=== PATIENT | male | born 1995 | race Caucasian/White ===

== ENCOUNTER 2019-09-20 17:42 | Emergency (ER) | payer OTHER, SELFPAY ==
--- NOTE | ~2019-09-20 | XR_ITS ---
EXAMINATION: XR chest 2V DATE: 09/20/2019 18:01 INDICATION: Left-sided chest pain extending into the arm. TECHNIQUE: PA and lateral views of the chest were obtained. COMPARISON: Chest radiograph dated 04/20/2016 FINDINGS: The lungs remain clear with no focal airspace opacities, pulmonary edema, pleural effusion or pneumot horax. The cardiomediastinal silhouette is normal. Calcified right hilar lymph nodes consistent with old granulomatous disease. Cholecystectomy clips in the right upper quadrant. Mild thoracic spondylos is. IMPRESSION: 1. No acute cardiopulmonary disease. Reviewed, dictated and finalized at location A. ERCIAL CARPENTER
--- NOTE | 2019-09-20 17:43 | ECG_ITS ---
Measurements Intervals [place] Rate: 79 P: 40 [place]: 155 QRS: 48 QRSD: 100 T: 51 QT: 341 QTc: 392 Interpretive Statements SINUS RHYTHM WITH SINUS ARRHYTHMIA BASELINE ARTIFACT- I, II, AVR, AVL, AVF, V1-V2 NORMAL ECG Electronically Signed On 09-20-2019 19:02:33 RN TRAVEL by Jorge Chance D.O.
[2019-09-20 17:45] VITALS: BP 126/94; PULSE 90; RESP 16; TEMP 36.6; O2SAT 100
[2019-09-20 17:49] VITALS: PULSE 82
[2019-09-20] MEDS: ASPIRIN 81 MG CHEWABLE TABLET 324 MG PO (17:56)
[2019-09-20 18:02] LABS: Basophils Percent Auto 0.4 % (0.2-1.2); Eosinophils Absolute Auto 0.2 K/mm3 (0-0.3); Eosinophils Percent Auto 1.9 % (0-4.4); Hemoglobin 13.2 g/dL (14.0-18.0); Immature Granulocyte Absolute 0.02 K/mm3 (0.00-0.031); Immature Granulocyte Percent A 0.2 % (0-0.5); Lymphocytes Absolute Auto 2.13 K/mm3 (0.9-3.2); Lymphocytes Percent Auto 25.9 % (18.3-44.2); Mean Corpuscular HGB Conc 32.2 g/dl (32-36); Mean Corpuscular Hemoglobin 29.2 pg (26-34); Mean Corpuscular Volume 90.7 fl (80-100); Mean Platelet Volume 10.2 fl (7.4-10.4); Monocytes Absolute Auto 0.5 K/mm3 (0.1-0.6); Monocytes Percent Auto 6.2 % (2.6-8.5); Neutrophils Absolute Auto 5.4 K/mm3 (1.3-6.7); Neutrophils Percent Auto 65.4 % (45.5-73.1); Platelet Count Result 261 k/mm3 (150-375); Red Blood Count 4.52 M/mm3 (4.6-6.20); White Blood Count 8.2 K/mm3 (4.5-10.0)
[2019-09-20 18:09] VITALS: BP 135/69; PULSE 112; RESP 18; O2SAT 100
--- NOTE | 2019-09-20 18:09 | ED.CHESTPAIN ---
HPI - Chest Pain General Chief Complaint: Chest Pain Stated Complaint: CAMI BEEN HAVING CHEST PAINS Time Seen by Provider: 09/20/19 18:01 Source: patient and RN notes reviewed Mode of arrival: ambulatory Limitations: no limitations History of Present Illness HPI narrative: A 24 y/o male, with a hx of Hepatitis C, presents to the ED with constant, stabbing, lt CP for the past 3 days. He states that he has been having intermittent lt CP for the past 4-5 months but that over the past 3 days it has become constant, so he decided to come to the ED to be evaluated. He reports that over the past week he has developed nasal congestion and a cough. He notes that standing alleviates his pain and that sitting or leaving forward aggravates his pain. He notes his pain is currently resolved. He also notes that he does smoke cigarettes, vapes, and E-cigarettes. He denies any N/V/D, sweats, SOB, leg swelling, leg pain, lightheadedness, or dizziness. MD complaint: chest pain Onset (ago): day(s) (3) Timing of current episode: constant Prior episodes: Yes Pain location: left chest Quality: other (stabbing) Relieving factors: other (standing) Exacerbating factors: other (sitting down or leaning forward) Associated symptoms: cough and other (nasal congestion) Risk Factors Coronary artery disease risk factors: smoking history Related Data Home Medications Medication Instructions Recorded Confirmed buprenorphine-naloxone film 09/20/19 Allergies Allergy/AdvReac Type Severity Reaction Status Date / Time cephalexin Allergy Unknown Rash Verified 09/20/19 17:50 Review of Systems Review of Systems: Narrative: CONSTITUTIONAL: Denies sweats. ENT: Reports nasal congestion. CARDIOVASCULAR: Denies edema or leg pain. Reports lt CP. RESPIRATORY: Denies dyspnea. Reports cough. GASTROINTESTINAL: Denies nausea, vomiting, or diarrhea. NEUROLOGIC: Denies dizziness or lightheadedness. All systems reviewed & are unremarkable except as noted in HPI and below PMFSH Past Medical History Medical History (Updated 09/20/19 @ 18:46 by Kassandra Gomes MD) Anxiety Depression Hepatitis C Right wrist fracture Surgical History Surgical History (Updated 09/20/19 @ 18:33 by Сергей Becerril) No history of previous surgery Social History Social History (Updated 09/20/19 @ 18:33 by Сергей Orr) Smoking packs per day: 0.33 Smoking cigarettes per day: 6.6 Smoking status: Current every day smoker Tobacco type: cigarettes and e-cigarettes Gender identity (if verbalized by the patient): Male Comments PCP: Dr. Zuniga. Exam Narrative: Exam Narrative: GENERAL: Well-appearing, well-nourished, and in no acute distress. HEAD: Normocephalic, atraumatic. EYES: PERRLA and EOMI. ENT: Nares clear, no rhinorrhea or epistaxis. Mucous membranes moist. NECK: Supple. CHEST: Clear to auscultation. No respiratory distress. No chest wall tenderness. HEART: Regular rate and rhythm. No murmur heard. Normal peripheral pulses. ABDOMEN: Soft, nontender, nondistended, normal active bowel sounds. EXTREMITIES: Normal range of motion. No edema. SKIN: Warm, dry, no rash. NEURO: No focal deficits. Alert and oriented X3. Course Vital Signs Vital signs: Vital Signs Temperature 36.6 C 09/20/19 17:45 Pulse Rate 90 09/20/19 17:45 Respiratory Rate 16 09/20/19 17:45 Blood Pressure 126/94 H 09/20/19 17:45 Pulse Oximetry 100 09/20/19 17:45 Temperature 36.6 C 09/20/19 17:45 Pulse Rate 112 H 09/20/19 18:09 Respiratory Rate 18 09/20/19 18:09 Blood Pressure 135/69 09/20/19 18:09 Pulse Oximetry 100 09/20/19 18:09 MDM - Chest Pain MDM Narrative Medical decision making narrative: Patient presenting for evaluation of chest pain which is been chronic over the past 3 to 4 months. Patient reports constant chest pain, there is a positional component to this. Patient's EKG and labs are without significant high risk changes. I do not see evidence concernin
[2019-09-20 18:11] LABS: Prothrombin Time 12.4 Seconds (11.1-14.7)
[2019-09-20 18:12] LABS: Partial Thromboplastin Time 27.8 SECONDS (22.3-36.8)
[2019-09-20 18:13] LABS: Blood Urea Nitrogen 21 mg/dL (9-20); Calcium 9.3 mg/dL (8.4-10.2); Carbon Dioxide 27 mmol/L (22-30); Chloride 99 mmol/L (98-107); Estimated CRCL calculation 130 ml/min; Estimated Glomerular Filt Rate > 60; Glucose 95 mg/dL (75-110); Potassium 3.7 mmol/L (3.4-5.0); Sodium 140 mmol/L (137-145)
[2019-09-20 18:25] LABS: Troponin I < 0.012 ng/mL (0.000-0.034)
[2019-09-20 19:16] VITALS: BP 115/67; PULSE 60; RESP 15; O2SAT 99
== END 2019-09-20 19:17 | disposition home or self-care (01) ==
PROVIDERS: Emergency Medicine; Emergency Provider Emergency Medicine; PCP Physician Assistant
DX: R07.89 Other chest pain (principal); Z86.19 Personal history of other infectious and parasitic diseases; F17.210 Nicotine dependence, cigarettes, uncomplicated; F17.290 Nicotine dependence, other tobacco product, uncomplicated; F41.9 Anxiety disorder, unspecified; F32.9 Major depressive disorder, single episode, unspecified
CPT/HCPCS: 36415; 71046; 80048; 84484; 85025; 85610; 85730; 93005; 99284; A9270

== ENCOUNTER 2021-04-09 10:40 | Emergency (ER) | payer OTHER, SELFPAY ==
--- NOTE | ~2021-04-09 | US_ITS ---
EXAMINATION: US scrotum doppler DATE: 04/09/2021 12:05 INDICATION: Left testicular pain TECHNIQUE: Testicular sonogram utilizing grayscale and Doppler COMPARISON: None. FINDINGS: The right testis measures 4.0 x 2.1 x 3.3 cm. The left testis measures 3.9 x 2.3 x 3.1 cm. Symmetric normal grayscale appearance to both testes. There is normal vascular flow to both testes. The right e pididymis is normal with normal vascular flow. The left epididymis is normal with normal vascular juliann w. There is no hydrocele. Left varicocele with vessels dilates to 2.7 mm which augment with Valsalva. IMPRESSION: 1. Left varicocele. Otherwise normal scrotal ultrasound. Reviewed, dictated and finalized at location A.
[2021-04-09 10:42] VITALS: BP 143/47; PULSE 62; RESP 16; TEMP 36.8; O2SAT 100
--- NOTE | 2021-04-09 11:17 | ED.GENADULT ---
HPI - General Adult General Chief complaint: Urogenital-Male Stated complaint: testicle pain Time Seen by Provider: 04/09/21 11:01 Source: patient and RN notes reviewed Mode of arrival: ambulatory Limitations: no limitations History of Present Illness HPI narrative: This is a 25 year old male who present for evaluation of left testicular pain. He reports having intermittent pain for 2 weeks. He states his pain is getting worse. He also reports left testicular swelling and tenderness. He denies fever, chills, discharge or dysuria. He does complain of left lower abdominal pain and nausea. He has chronic back pain. Related Data Home Medications Medication Instructions Recorded Confirmed buprenorphine-naloxone 1 film SUBLINGUAL BID 09/20/19 Allergies Allergy/AdvReac Type Severity Reaction Status Date / Time cephalexin Allergy Unknown Rash Verified 04/09/21 11:23 Review of Systems Review of Systems: All systems reviewed & are unremarkable except as noted in HPI and below PMFSH Past Medical History Medical History Anxiety Depression Hepatitis C Right wrist fracture Surgical History Surgical History (Updated 09/20/19 @ 18:33 by Сергей Becerril) No history of previous surgery Social History Social History (Updated 09/20/19 @ 18:33 by Сергей Becerril) Smoking packs per day: 0.33 Smoking cigarettes per day: 6.6 Smoking status: Current every day smoker Tobacco type: cigarettes and e-cigarettes/vaping Gender identity (if verbalized by the patient): Male Exam Const: General: no acute distress and alert Orientation/consciousness: patient oriented x3 Eyes: EOM: EOMs intact bilaterally Resp: Effort & Inspection: normal respiratory effort and no retractions Auscultation: clear to auscultation bilaterally Cardio: Rate: regular rate Rhythm: regular rhythm Heart sounds: no murmurs GI: GI Palp: Yes Soft to palpation, No Tenderness to palpation present (GI) and No Guarding due to palpation present (GI) Auscultation: normal bowel sounds : General: Yes no CVA tenderness Male General Exam: Yes normal external exam Penis: Yes circumcised Scrotum: scrotum normal Skin: General skin exam: normal color Rashes: no rashes Neuro: General: patient oriented x3, moves all extremities and CN's II-XI intact bilaterally Course Reevaluation(s) Reevaluation #1: Patient has normal examination and labs. I discussed with patient. Date: 04/09/21 Time: 13:36 Vital Signs Vital signs: Vital Signs Temperature 98.3 F 04/09/21 10:42 Pulse Rate 62 04/09/21 10:42 Respiratory Rate 16 04/09/21 10:42 Blood Pressure 143/47 H 04/09/21 10:42 Pulse Oximetry 100 04/09/21 10:42 Temperature 98.3 F 04/09/21 10:42 Pulse Rate 70 04/09/21 13:41 Respiratory Rate 20 04/09/21 13:41 Blood Pressure 138/80 04/09/21 13:41 Pulse Oximetry 100 04/09/21 13:41 Medical Decision Making Vital Signs Vital Signs: Vital Signs Temperature 98.3 F 04/09/21 10:42 Pulse Rate 62 04/09/21 10:42 Respiratory Rate 16 04/09/21 10:42 Blood Pressure 143/47 H 04/09/21 10:42 Pulse Oximetry 100 04/09/21 10:42 Temperature 98.3 F 04/09/21 10:42 Pulse Rate 70 04/09/21 13:41 Respiratory Rate 20 04/09/21 13:41 Blood Pressure 138/80 04/09/21 13:41 Pulse Oximetry 100 04/09/21 13:41 Lab Data Result diagrams: 04/09/21 11:26 04/09/21 11:26 Labs: Lab Results 04/09/21 04/09/21 04/09/21 Range/Units 11:26 11:26 11:26 WBC 6.1 (4.5-10.0) K/mm3 RBC 4.48 L (4.6-6.20) M/mm3 Hgb 13.3 L (14.0-18.0) g/dL Hct 41.6 L (42.0-52.0) % MCV 92.9 (80-100) fl MCH 29.7 (26-34) pg MCHC 32.0 (32-36) g/dl RDW 12.4 (11.5-14.5) % Plt Count 179 (150-375) k/mm3 MPV 10.3 (7.4-10.4) fl Immature Gran % (Auto) 0.3 (0-0.5) % Neut % (Auto) 59.9 (45.5-73.1) % Lymp
[2021-04-09 11:50] LABS: Basophils Percent Auto 0.5 % (0.2-1.2); Eosinophils Absolute Auto 0.2 K/mm3 (0-0.3); Eosinophils Percent Auto 3.1 % (0-4.4); Hematocrit 41.6 % (42.0-52.0); Hemoglobin 13.3 g/dL (14.0-18.0); Immature Granulocyte Absolute 0.02 K/mm3 (0.00-0.031); Immature Granulocyte Percent A 0.3 % (0-0.5); Lymphocytes Absolute Auto 1.57 K/mm3 (0.9-3.2); Lymphocytes Percent Auto 25.7 % (18.3-44.2); Mean Corpuscular Hemoglobin 29.7 pg (26-34); Mean Corpuscular Volume 92.9 fl (80-100); Mean Platelet Volume 10.3 fl (7.4-10.4); Monocytes Absolute Auto 0.6 K/mm3 (0.1-0.6); Monocytes Percent Auto 10.5 % (2.6-8.5); Neutrophils Absolute Auto 3.7 K/mm3 (1.3-6.7); Neutrophils Percent Auto 59.9 % (45.5-73.1); Platelet Count Result 179 k/mm3 (150-375); Red Blood Count 4.48 M/mm3 (4.6-6.20); Red Cell Distribution Width 12.4 % (11.5-14.5); White Blood Count 6.1 K/mm3 (4.5-10.0)
[2021-04-09 12:02] LABS: Alanine Aminotransferase 27 U/L (4-50); Albumin Level 4.2 g/dL (3.5-5.1); Alkaline Phosphatase 46 U/L (38-126); Anion Gap 5 mmol/L (8-16); Aspartate Amino Transferase 24 U/L (17-59); Bilirubin,Total 0.5 mg/dL (0.2-1.3); Blood Urea Nitrogen 18 mg/dL (9-20); Calcium 9.3 mg/dL (8.4-10.2); Carbon Dioxide 28 mmol/L (22-30); Chloride 108 mmol/L (98-107); Estimated CRCL calculation 129 ml/min; Estimated Glomerular Filt Rate > 60; Glucose 62 mg/dL (65-110); Potassium 3.7 mmol/L (3.4-5.0); Sodium 141 mmol/L (137-145)
[2021-04-09 12:12] LABS: Add Urine Microscopic? YES; Appearance Urine Cloudy (Clear); Bacteria Urine Trace /hpf; Bilirubin Urine Negative (Negative); Blood Urine Negative (Negative); Budding Yeast Urine Present /hpf; Color Urine Yellow (Yellow); Glucose Urine UA Negative (Negative); Ketones Urine Negative (Negative); Leukocyte Esterase Ur Negative LEU/UL (Negative); Nitrate Urine Negative (Negative); Protein Urine Negative (Negative); RBC Urine 0-2 /hpf (0-2); Specific Grav Ur 1.013 (1.001-1.035); Squamous Epithelial Cell Urine Rare /hpf (Few); Urobilinogen Urine Negative mg/dL (<2.0); WBC Urine 0-3 /hpf
[2021-04-09] MEDS: KETOROLAC (*BKC) 60 MG/2 ML VIAL IM (12:44)
[2021-04-09 13:41] VITALS: BP 138/80; PULSE 70; RESP 20; O2SAT 100
== END 2021-04-09 13:42 | disposition home or self-care (01) ==
PROVIDERS: Emergency Provider General Practice; PCP Physician Assistant
DX: I86.1 Scrotal varices (principal); Z86.19 Personal history of other infectious and parasitic diseases; F17.290 Nicotine dependence, other tobacco product, uncomplicated
CPT/HCPCS: 36415; 76870; 80053; 81001; 85025; 93976; 96372; 99284; J1885

== ENCOUNTER 2021-04-13 13:17 | Emergency (ER) | payer OTHER, SELFPAY ==
--- NOTE | ~2021-04-13 | CT_ITS ---
EXAMINATION: 1. CT abdomen pelvis w con 2. CT femur LT w con DATE: 04/13/2021 17:00 INDICATION: Generalized abdominal pain. Left groin abscess. TECHNIQUE: Computed tomography (CT) of the abdomen and pelvis and left femur was performed with 100 m L Omnipaque 350 intravenous contrast. Automated exposure control and iterative reconstruction Launchupse were employed. The dose-length product was 1114.14 (accession [id number]), .00 (accession [id number]) mGy-cm. COMPARISON: CT abdomen and pelvis 12/21/2018 FINDINGS: CT ABDOMEN AND PELVIS: The visualized portions of the lung bases demonstrate minimal atelectasis. No pleural effusion. The h eart size is normal. No pericardial effusion. The liver, gallbladder, spleen, pancreas, adrenal gland s, and right kidney are normal. There is a 10 mm cyst in left kidney. There are no dilated loops of b owel. The appendix is normal. There are no pathologically enlarged lymph nodes. There is no free intr aperitoneal fluid. There is mild thoracolumbar spondylosis. There is chronic anterior wedging of T11. CT LEFT FEMUR: There is subcutaneous fat stranding in the left inguinal region. No soft tissue gas. There are no pat hologically enlarged lymph nodes. There is a 5 mm subcutaneous radiopaque foreign body in posterolate ral thigh. No knee joint effusion. There is mild left hip osteoarthritis. IMPRESSION: 1. Subcutaneous fat stranding in left inguinal region, consistent with inflammation. No abscess. 2. 5 mm subcutaneous radiopaque foreign body in posterolateral left thigh. Reviewed, dictated and finalized at location A. IMPRESSION: 1. Subcutaneous fat stranding in left inguinal region, consistent with inflamma tion. No abscess. 2. 5 mm subcutaneous radiopaque foreign body in posterolateral left thigh.
[2021-04-13 13:52] VITALS: BP 124/63; PULSE 86; RESP 16; TEMP 37.6; O2SAT 100
[2021-04-13 14:11] VITALS: BP 127/63; PULSE 86; RESP 18; TEMP 37.6; O2SAT 100
--- NOTE | 2021-04-13 14:17 | ED.GENADULT ---
HPI - General Adult General Chief complaint: Skin/Abscess/Foreign Body <EVELYN Fink Last Filed: 04/13/21 19:30> Stated complaint: Abscess groin <EVELYN Fink Last Filed: 04/13/21 19:30> Time Seen by Provider: 04/13/21 14:17 <EVELYN Fink Last Filed: 04/13/21 19:30> History of Present Illness HPI narrative: Patient is a 25-year-old male otherwise healthy who comes into the emergency room today with concerns about an abscess in his left groin. He notes that he noticed a painful red area in his left groin 3 days ago that is gotten progressively larger and more painful and earlier today it started draining some purulent fluid. Notes that he had some pain radiating up into his abdomen earlier today. He denies any fevers. He does note that he has been having some intermittent pain in his left groin and testicle region for the last 3 weeks, he actually came here over the weekend complaining of testicular pain and work-up was unremarkable including ultrasound, but the lump and skin changes were not present at that time. He has a history of opiate abuse, but has not used opioids for the last 3 or 4 years, is on Suboxone. Denies any illicit drug use at all. He is not diabetic and has no other medical conditions otherwise denies any fevers or any other symptoms or concerns. <EVELYN Fink Last Filed: 04/13/21 19:30> Related Data Home medications: Home Medications Medication Instructions Recorded Confirmed buprenorphine-naloxone 1 film SUBLINGUAL BID 09/20/19 <EVELYN Fink Last Filed: 04/13/21 19:30> Allergies/adverse reactions: Allergies Allergy/AdvReac Type Severity Reaction Status Date / Time cephalexin Allergy Unknown Rash Verified 04/13/21 14:15 <EVELYN Fink Last Filed: 04/13/21 19:30> Review of Systems Constitutional: Constitutional: Reports as per HPI, Denies fever(s), Denies night sweats and Denies weakness <EVELYN Fink Last Filed: 04/13/21 19:30> Cardiovascular: Cardiovascular: Denies chest pain, Denies edema, Denies leg edema, Denies dyspnea and Denies orthopnea <Negrito ReyesEVELYN Last Filed: 04/13/21 19:30> Respiratory: Respiratory: Denies cough and Denies dyspnea <Negrito ReyesEVELYN Last Filed: 04/13/21 19:30> Gastrointestinal: Gastrointestinal: Denies abdominal pain, Denies constipation, Denies diarrhea, Denies nausea and Denies vomiting <Negrito ReyesEVELYN Malcolm Last Filed: 04/13/21 19:30> Musculoskeletal: Musculoskeletal: Denies abnormal gait, Denies back pain, Denies numbness and Denies tingling <Negrito ÁlvarezdusEVELYN Last Filed: 04/13/21 19:30> Integumentary/Breasts: Comments: See HPI <Negrito Mcfarland EVELYN Reyes Last Filed: 04/13/21 19:30> Neurologic: Denies Abnormal speech present, Denies abnormal gait, Denies numbness, Denies tingling and Denies weakness <Negrito ÁlvarezEVELYN koch Last Filed: 04/13/21 19:30> Psychiatric: Psychiatric: Denies homicidal ideation and Denies suicidal ideation <Negrito ÁlvarezEVELYN koch Malcolm Last Filed: 04/13/21 19:30> [facility] Past Medical History Medical History: Medical History Anxiety Depression Hepatitis C Right wrist fracture <Negrito NortonDigna Reyes PA-C Malcolm Last Filed: 04/13/21 19:30> Surgical History Surgical History: Surgical History (Updated 09/20/19 @ 18:33 by Сергей Becerril) No history of previous surgery <Negrito Mcfarland EVELYN Reyes Last Filed: 04/13/21 19:30> Social History Social History: Social History (Updated 09/20/19 @ 18:33 by Сергей Becerril) Smoking packs per day: 0.33 Smoking cigarettes per day: 6.6 Smoking status: Current every day smoker Tobacco type: cigarettes and e-cigarettes/vaping Gender identity (if verbalized by the patient): Male <Negrito Reyes PA-C - Last Filed: 04/13/21 19:30> Exam N
[2021-04-13] MEDS: LACTATED RINGERS 1,000 ML 999 ML IV CONT (15:59)
[2021-04-13] MEDS: KETOROLAC 15 MG/ML VIAL (*BKC) IV PUSH (15:59)
[2021-04-13 16:14] LABS: Basophils Percent Auto 0.4 % (0.2-1.2); Eosinophils Absolute Auto 0.2 K/mm3 (0-0.3); Eosinophils Percent Auto 1.6 % (0-4.4); Hematocrit 42.8 % (42.0-52.0); Hemoglobin 13.7 g/dL (14.0-18.0); Immature Granulocyte Absolute 0.03 K/mm3 (0.00-0.031); Immature Granulocyte Percent A 0.3 % (0-0.5); Lymphocytes Absolute Auto 1.59 K/mm3 (0.9-3.2); Lymphocytes Percent Auto 14.6 % (18.3-44.2); Mean Corpuscular Hemoglobin 29.9 pg (26-34); Mean Corpuscular Volume 93.4 fl (80-100); Mean Platelet Volume 10.3 fl (7.4-10.4); Monocytes Absolute Auto 0.8 K/mm3 (0.1-0.6); Monocytes Percent Auto 7.3 % (2.6-8.5); Neutrophils Absolute Auto 8.3 K/mm3 (1.3-6.7); Neutrophils Percent Auto 75.8 % (45.5-73.1); Platelet Count Result 209 k/mm3 (150-375); Red Blood Count 4.58 M/mm3 (4.6-6.20); Red Cell Distribution Width 12.4 % (11.5-14.5); White Blood Count 10.9 K/mm3 (4.5-10.0)
[2021-04-13 16:29] LABS: Alanine Aminotransferase 29 U/L (4-50); Albumin Level 4.5 g/dL (3.5-5.1); Alkaline Phosphatase 54 U/L (38-126); Anion Gap 5 mmol/L (8-16); Aspartate Amino Transferase 31 U/L (17-59); Bilirubin,Total 0.6 mg/dL (0.2-1.3); Blood Urea Nitrogen 21 mg/dL (9-20); Calcium 9.3 mg/dL (8.4-10.2); Carbon Dioxide 30 mmol/L (22-30); Chloride 103 mmol/L (98-107); Estimated CRCL calculation 144 ml/min; Estimated Glomerular Filt Rate > 60; Glucose 92 mg/dL (65-110); Potassium 3.9 mmol/L (3.4-5.0); Sodium 138 mmol/L (137-145)
[2021-04-13 17:27] VITALS: BP 114/66; PULSE 60; RESP 18; O2SAT 100
[2021-04-13] MEDS: CLINDAMYCIN 600 MG/D5W 50 ML 600 MG/50 ML PIGGYBACK 100 MG IVPB (17:37)
[2021-04-13 19:50] VITALS: BP 132/76; PULSE 78; RESP 18; O2SAT 99
== END 2021-04-13 19:51 | disposition home or self-care (01) ==
PROVIDERS: Physician Assistant Medical; Emergency Provider Emergency Medicine; PCP Physician Assistant
DX: L03.90 Cellulitis, unspecified (principal); L02.818 Cutaneous abscess of other sites; F17.210 Nicotine dependence, cigarettes, uncomplicated; F41.9 Anxiety disorder, unspecified; F32.9 Major depressive disorder, single episode, unspecified
CPT/HCPCS: 10060; 36415; 73701; 74177; 80053; 85025; 96361; 96365; 96375; 99284; J1885; J7120; Q9967

== ENCOUNTER 2021-05-25 13:04 | Emergency (ER) | payer OTHER, SELFPAY ==
--- NOTE | ~2021-05-25 | XR_ITS ---
EXAMINATION: XR chest 2V DATE: 05/25/2021 13:20 INDICATION: Midsternal to left-sided chest pain TECHNIQUE: PA and lateral views of the chest were obtained. COMPARISON: Chest radiograph dated 09/20/19 FINDINGS: The lungs remain clear with no focal airspace opacities, pulmonary edema, pleural effusion or pneumot horax. The cardiomediastinal silhouette is normal. Mild thoracic spondylosis. IMPRESSION: 1. No acute cardiopulmonary disease. Reviewed, dictated and finalized at location A.
--- NOTE | 2021-05-25 13:05 | ECG_ITS ---
Measurements Intervals [place] Rate: 73 P: 62 ID: 150 QRS: 62 QRSD: 98 T: 63 QT: 345 QTc: 382 Interpretive Statements SINUS RHYTHM NORMAL ECG Electronically Signed On 05-25-2021 13:11:46 CDT by Jorge Chance D.O.
[2021-05-25 13:19] VITALS: BP 130/90; PULSE 85; RESP 14; TEMP 36.5; O2SAT 99
[2021-05-25 13:32] LABS: Basophils Percent Auto 0.5 % (0.2-1.2); Eosinophils Absolute Auto 0.2 K/mm3 (0-0.3); Eosinophils Percent Auto 2.3 % (0-4.4); Hematocrit 42.1 % (42.0-52.0); Immature Granulocyte Absolute 0.01 K/mm3 (0.00-0.031); Immature Granulocyte Percent A 0.2 % (0-0.5); Lymphocytes Absolute Auto 1.84 K/mm3 (0.9-3.2); Lymphocytes Percent Auto 28.5 % (18.3-44.2); Mean Corpuscular HGB Conc 33.3 g/dl (32-36); Mean Corpuscular Hemoglobin 30.8 pg (26-34); Mean Corpuscular Volume 92.5 fl (80-100); Mean Platelet Volume 9.8 fl (7.4-10.4); Monocytes Absolute Auto 0.6 K/mm3 (0.1-0.6); Monocytes Percent Auto 9.5 % (2.6-8.5); Neutrophils Absolute Auto 3.8 K/mm3 (1.3-6.7); Platelet Count Result 263 k/mm3 (150-375); Red Blood Count 4.55 M/mm3 (4.6-6.20); Red Cell Distribution Width 12.5 % (11.5-14.5); White Blood Count 6.5 K/mm3 (4.5-10.0)
[2021-05-25 13:41] LABS: Anion Gap 7 mmol/L (8-16); Blood Urea Nitrogen 19 mg/dL (9-20); Calcium 9.8 mg/dL (8.4-10.2); Carbon Dioxide 34 mmol/L (22-30); Chloride 99 mmol/L (98-107); Estimated CRCL calculation 144 ml/min; Estimated Glomerular Filt Rate > 60; Glucose 87 mg/dL (65-110); Potassium 3.9 mmol/L (3.4-5.0); Sodium 140 mmol/L (137-145)
[2021-05-25 13:42] LABS: Partial Thromboplastin Time 27.5 SECONDS (22.3-36.8)
[2021-05-25 13:53] LABS: Troponin I < 0.012 ng/mL (0.000-0.034)
--- NOTE | 2021-05-25 14:20 | ED.CHESTPAIN ---
HPI - Chest Pain General Chief Complaint: Chest Pain Stated Complaint: CP X 2 WEEKS Time Seen by Provider: 05/25/21 14:00 Source: patient and RN notes reviewed Mode of arrival: ambulatory Limitations: no limitations History of Present Illness HPI narrative: Patient presents with intermittent upper chest sharp pain sometimes radiating to the left side started 2 weeks ago, gets worse when he does physical activities, get better laying down flat and taking aspirin. Patient denies any fever, chills, nausea, vomiting, shortness of breath. Patient is healthy otherwise, does not take medicine, smokes, denied drinking or using marijuana. Patient had a , of 2 months old, a lot of stress lately. Related Data Home Medications Medication Instructions Recorded Confirmed buprenorphine-naloxone 1 film SUBLINGUAL BID 09/20/19 Allergies Allergy/AdvReac Type Severity Reaction Status Date / Time cephalexin Allergy Unknown Rash Verified 04/13/21 14:15 Review of Systems Review of Systems: CONSTITUTIONAL: Denies fever, chills, or sweats. EYES: Denies visual changes, redness, or discharge. ENT: Denies rhinorrhea, congestion, sore throat, or otalgia. CARDIOVASCULAR: Denies chest pain, palpitations, or edema. RESPIRATORY: Denies cough or dyspnea. GASTROINTESTINAL: Denies abdominal pain, nausea, vomiting, or diarrhea. GENITOURINARY: Denies dysuria or hematuria. SKIN: Denies rash or itching. MUSCULOSKELETAL: Denies back pain, joint pain, or myalgia. NEUROLOGIC: Denies headache, numbness, or weakness. PSYCHIATRIC: Denies anxiety or depression. PMFSH Past Medical History Medical History Anxiety Depression Hepatitis C Right wrist fracture Surgical History Surgical History No history of previous surgery Social History Social History Smoking packs per day: 0.33 Smoking cigarettes per day: 6.6 Smoking status: Current every day smoker Tobacco type: cigarettes and e-cigarettes/vaping Gender identity (if verbalized by the patient): Male Exam Narrative: General appearance: Well-developed, well-nourished Skin: Normal color Head: Normocephalic, nontraumatic Eyes: Clear conjunctiva ENT: Oropharynx normal, ears normal, nose normal Neck: Supple, nontender Chest and respiratory: Airway patent, no respiratory distress, no accessory muscle use Heart: Regular rate/rhythm Abdomen: Soft, nontender, no organomegaly, quiet bowel sounds Vascular: Normal peripheral pulses, normal capillary refill. Musculoskeletal: Normal range of motion, nontender back Neurologic: Alert and oriented ?3, DESK OPERATOR is normal as tested, no gross motor deficit Course Course Emergency Course: Stable Vital Signs Vital signs: Vital Signs Temperature 36.5 C 05/25/21 13:19 Pulse Rate 85 05/25/21 13:19 Respiratory Rate 14 05/25/21 13:19 Blood Pressure 130/90 05/25/21 13:19 Pulse Oximetry 99 05/25/21 13:19 Temperature 36.5 C 05/25/21 13:19 Pulse Rate 85 05/25/21 13:19 Respiratory Rate 14 05/25/21 13:19 Blood Pressure 130/90 05/25/21 13:19 Pulse Oximetry 99 05/25/21 13:19 MDM - Chest Pain MDM Narrative Medical decision making narrative: Patient presents with intermittent upper chest pain, atypical chest pain is my concern. Patient have a lot of stress lately. Labs ordered. Patient denies cocaine use or any drug use. Differential Diagnosis Differential diagnosis: Likely atypical chest pain, costochondritis and chest pain Medical Records Data Medical records narrative: Atypical chest pain,
[2021-05-25] MEDS: ASPIRIN 81 MG CHEWABLE TABLET 324 MG PO (16:30)
[2021-05-25 16:33] VITALS: BP 108/66; PULSE 65; RESP 18; TEMP 37; O2SAT 100
[2021-05-25 17:04] LABS: Troponin I < 0.012 ng/mL (0.000-0.034)
== END 2021-05-25 16:38 | disposition home or self-care (01) ==
PROVIDERS: Emergency Medicine; Emergency Provider Emergency Medicine; PCP Physician Assistant
DX: R07.89 Other chest pain (principal); F17.210 Nicotine dependence, cigarettes, uncomplicated; F17.290 Nicotine dependence, other tobacco product, uncomplicated; Z86.19 Personal history of other infectious and parasitic diseases
CPT/HCPCS: 36415; 71046; 80048; 84484; 85025; 85610; 85730; 93005; 99284; A9270

== ENCOUNTER 2021-08-31 05:58 | Emergency (ER) | payer OTHER, SELFPAY ==
[2021-08-31 05:59] VITALS: BP 126/72; PULSE 77; RESP 12; TEMP 36.9; O2SAT 100
--- NOTE | 2021-08-31 06:05 | ECG_ITS ---
Measurements Intervals [place] Rate: 73 P: 57 ND: 167 QRS: 69 QRSD: 96 T: 55 QT: 367 QTc: 407 Interpretive Statements SINUS RHYTHM INCOMPLETE RIGHT BUNDLE BRANCH BLOCK BORDERLINE ECG Electronically Signed On 08-31-2021 6:46:06 FACILITIES PAINTER by Jorge Chance D.O.
[2021-08-31 06:06] VITALS: RESP 17
[2021-08-31 06:44] VITALS: BP 128/69; PULSE 78; RESP 12; O2SAT 99
--- NOTE | 2021-08-31 07:01 | ED.GENADULT ---
HPI - General Adult General Chief complaint: Overdose Stated complaint: unconscious with agnal resp - 4mg narcan a+ox4 now Time Seen by Provider: 08/31/21 06:50 History of Present Illness HPI narrative: 26-year-old male presenting to the emergency department by EMS for evaluation after an accidental overdose on fentanyl. Patient states that he had not used in 2 years. Patient states that he did relapse last night. Patient is unsure who called ambulance. Patient reports that Narcan was given and afterwards he was alert and appropriate. Upon arrival to the emergency department patient only complaint is mild headache. Patient denies any chest pain or shortness of breath. Patient denies any nausea or vomiting. Patient appears to be in no distress at this time. Related Data Home Medications Medication Instructions Recorded Confirmed buprenorphine-naloxone 1 film SUBLINGUAL BID 09/20/19 Allergies Allergy/AdvReac Type Severity Reaction Status Date / Time cephalexin Allergy Unknown Rash Verified 08/31/21 06:08 Review of Systems Review of Systems: CONSTITUTIONAL: Denies fever, chills, or sweats. EYES: Denies visual changes, redness, or discharge. ENT: Denies rhinorrhea, congestion, sore throat, or otalgia. CARDIOVASCULAR: Denies chest pain, palpitations, or edema. RESPIRATORY: Denies cough or dyspnea. GASTROINTESTINAL: Denies abdominal pain, nausea, vomiting, or diarrhea. GENITOURINARY: Denies dysuria or hematuria. SKIN: Denies rash or itching. MUSCULOSKELETAL: Denies back pain, joint pain, or myalgia. NEUROLOGIC: Denies headache, numbness, or weakness. PSYCHIATRIC: Denies anxiety or depression. PMFSH Past Medical History Medical History Anxiety Depression Hepatitis C Right wrist fracture Surgical History Surgical History No history of previous surgery Social History Social History Smoking packs per day: 0.33 Smoking cigarettes per day: 6.6 Smoking status: Current every day smoker Tobacco type: cigarettes and e-cigarettes/vaping Gender identity (if verbalized by the patient): Male Exam Narrative: APPEARANCE: Well appearing, no pain, no distress, well-nourished. HEAD: normocephalic, atraumatic. EYES: PERRLA/EOMI, conjunctivae clear. NOSE: Normal no drainage EARS:TMS clear with good light reflex. THROAT: Pharynx clear, no exudate. NECK: Supple. No adenopathy, no masses. RESPIRATORY: Airway patent, respirations nonlabored. Clear to auscultation bilaterally, no rales, rhonchi, wheezing. CARDIOVASCULAR: Regular rate and rhythm without murmurs rubs or gallops. ABDOMINAL: Soft, nontender, nondistended, normal bowel sounds MUSCULOSKELETAL: Moves all extremities. Strength/ROM intact, No edema, No calf tenderness. NEURO: Alert. Cranial nerves II through XII intact. Good gait. Good coordination SKIN: Warm, dry. Normal Color PSYCHIATRIC: Normal affect/mood. Course Course Emergency Course: patient is requesting DC to home. Patient is alert oriented and in no distress at this time. Clinical impression is fentanyl overdose Disposition is discharged to home Clinical condition is improved Vital Signs Vital signs: Vital Signs Temperature 98.4 F 08/31/21 05:59 Pulse Rate 77 08/31/21 05:59 Respiratory Rate 12 08/31/21 05:59 Blood Pressure 126/72 08/31/21 05:59 Pulse Oximetry 100 08/31/21 05:59 Temperature 98.4 F 08/31/21 05:59 Pulse Rate 78 08/31/21 06:44 Respiratory Rate 18 08/31/21 07:27 Blood Pressure 128/69 08/31/21 06:44 Pulse Oximetry 99 08/31/21 07:35 Medical Decision Making Vital Signs Vital Signs: Vital Signs Temperature 98.4 F 08/31/21 05:59 Pulse Rate 77 08/31/21 05:59 Respiratory Rate 12 08/31/21 05:59 Blood Pressure 126/72 08/31/21 05:59 Pulse Oximetry 100 08/31/21 05:59 Te
[2021-08-31] MEDS: ACETAMINOPHEN 325 MG TABLET 650 MG PO (07:26)
[2021-08-31 07:27] VITALS: RESP 18
[2021-08-31 07:35] VITALS: O2SAT 99
== END 2021-08-31 07:36 | disposition home or self-care (01) ==
PROVIDERS: Emergency Provider Emergency Medicine; PCP Physician Assistant
DX: T40.411A Poisoning by fentanyl or fentanyl analogs, accidental (unintentional), initial encounter (principal); F41.9 Anxiety disorder, unspecified; F32.9 Major depressive disorder, single episode, unspecified
CPT/HCPCS: 93005; 99283; A9270

== ENCOUNTER 2021-09-28 12:34 | Outpatient (CLI) | payer OTHER, SELFPAY ==
--- NOTE | ~2021-09-28 | US_ITS ---
EXAMINATION: US scrotum doppler DATE: 09/28/2021 13:08 INDICATION: Left testicular mass TECHNIQUE: Testicular sonogram utilizing grayscale and Doppler COMPARISON: 04/09/2021 FINDINGS: The right testis measures 3.4 x 2.7 x 1.8 cm. The left testis measures 3.6 x 2.2 x 1.8 cm. There is normal vascular flow to both testes. The right epididymis is normal with normal vascular juliann w. The left epididymis is normal with normal vascular flow. There is a left varicocele which measures up to 3.3 mm. IMPRESSION: 1. Persistent left varicocele. Reviewed, dictated and finalized at location A. ISTRY MANAGER
[2021-09-30 12:30] LABS: PCP NEGATIVE ng/mL (<25)
[2021-10-03 15:41] LABS: Testosterone Free 252.3 pg/mL (35.0-155.0); Testosterone Total 1092 ng/dL (250-1100)
[2021-10-07 15:05] LABS: Amphetamines NEGATIVE; Marijuana Metabolites NEGATIVE
[2021-10-07 15:06] LABS: Barbiturates NEGATIVE; Benzodiazepines NEGATIVE; Cocaine Metabolites NEGATIVE
== END 2021-09-28 12:35 | disposition home or self-care (01) ==
PROVIDERS: PCP Physician Assistant; Visit Provider Nurse Practitioner Family
DX: N50.89 Other specified disorders of the male genital organs (principal); F11.99 Opioid use, unspecified with unspecified opioid-induced disorder; I86.1 Scrotal varices
CPT/HCPCS: 36415; 76870; 80307; 84402; 84403; 93976

== ENCOUNTER 2022-04-08 21:04 | Emergency (ER) | payer OTHER, SELFPAY ==
--- NOTE | ~2022-04-08 | CT_ITS ---
EXAMINATION: CT diagnostic chest wo con DATE: 04/08/2022 21:57 INDICATION: Chest pain TECHNIQUE: Computed tomography (CT) of the chest was performed without intravenous contrast. The dose -length product (DLP) was 612.93 mGy-cm. Automated exposure control and iterative reconstruction tech nique were employed. COMPARISON: None FINDINGS: The lungs are free of focal airspace opacities. No pleural effusion or pneumothorax. Calcif ied pulmonary nodules and calcified right hilar lymph nodes are consistent with old granulomatous dis ease. There is mild dependent atelectasis. The heart size is normal. There is mild bilateral axillary lymphadenopathy. IMPRESSION: 1. No CT correlate for the patient's symptoms. 2. Mild bilateral axillary lymphadenopathy which may be reactive however, clinical follow-up is recom mended. Reviewed, dictated and finalized at location A. IMPRESSION: 1. No CT correlate for the patient's symptoms. 2. Mild bilateral axillary lymphadenopathy which may be reactive however, clini sheron follow-up is recommended.
--- NOTE | ~2022-04-08 | CT_ITS ---
EXAMINATION: CT cervical spine wo con DATE: 04/08/2022 21:56 INDICATION: Neck pain TECHNIQUE: Computed tomography (CT) of the cervical spine was performed without intravenous contrast. The dose-length product (DLP) was 365.19 mGy-cm. Automated exposure control and iterative reconstruc tion technique were employed. COMPARISON: None FINDINGS: There is no fracture, dislocation, or subluxation. The vertebral body heights, alignment, a nd intervertebral disc spaces are normal. The paravertebral soft tissues are unremarkable. IMPRESSION: 1. No acute osseous abnormality. Reviewed, dictated and finalized at location A.
[2022-04-08 21:05] VITALS: BP 136/63; PULSE 72; RESP 18; TEMP 36.6; O2SAT 100
--- NOTE | 2022-04-08 21:12 | ECG_ITS ---
Measurements Intervals [place] Rate: 62 P: 47 ND: 152 QRS: 55 QRSD: 101 T: 46 QT: 376 QTc: 384 Interpretive Statements SINUS RHYTHM NORMAL ECG COMPARED TO ECG 08/31/2021 06:05:24 NO SIGNIFICANT CHANGES Electronically Signed On 04-09-2022 12:19:12 CDT by José Miguel Mcclellan M.D.
[2022-04-08 21:15] VITALS: PULSE 75
[2022-04-08 21:41] LABS: Basophils Absolute Auto 0.02 K/mm3 (0.00-0.10); Basophils Percent Auto 0.4 % (0.0-1.0); Eosinophils Absolute Auto 0.14 K/mm3 (0.02-0.50); Eosinophils Percent Auto 2.7 % (1.0-6.0); Hematocrit 42.8 % (40.0-54.0); Hemoglobin 13.9 g/dL (14.0-18.0); Immature Granulocyte Absolute 0.02 K/mm3 (0.00-0.00); Immature Granulocyte Percent A 0.4 % (0.0-0.0); Lymphocytes Absolute Auto 1.69 K/mm3 (1.10-4.50); Lymphocytes Percent Auto 32.6 % (18.0-42.0); Mean Corpuscular HGB Conc 32.5 g/dL (32.0-36.0); Mean Corpuscular Hemoglobin 30.4 pg (27.0-31.0); Mean Corpuscular Volume 93.7 fL (78.0-102.0); Mean Platelet Volume 9.7 fl (8.7-11.0); Monocytes Absolute Auto 0.52 K/mm3 (0.10-0.90); Neutrophils Absolute Auto 2.8 K/mm3 (1.7-7.2); Neutrophils Percent Auto 53.9 % (50.0-70.0); Platelet Count Result 206 K/mm3 (150-420); Red Blood Count 4.57 M/mm3 (4.70-6.10); Red Cell Distribution Width 11.9 % (11.6-14.4); White Blood Count 5.2 K/mm3 (4.8-10.8)
[2022-04-08 22:00] LABS: Alanine Aminotransferase 33 U/L (16-63); Alkaline Phosphatase 49 U/L (46-116); Anion Gap 5 mmol/L (8-16); Aspartate Amino Transferase 24 U/L (15-37); Bilirubin,Total 0.4 mg/dL (0.00-1.00); Blood Urea Nitrogen 19 mg/dL (7-18); Calcium 8.5 mg/dL (8.5-10.1); Carbon Dioxide 29 mmol/L (21-32); Chloride 100 mmol/L (98-108); Estimated Glomerular Filt Rate > 60; Glucose 106 mg/dL (70-99); Osmolality Calculated 280 mOsm/kg (285-295); Potassium 3.6 mmol/L (3.5-5.1); Sodium 134 mmol/L (136-145); Total Protein 6.9 g/dL (6.4-8.2); Troponin I 4.2 ng/L (0.00-60.4)
[2022-04-08 22:08] LABS: Add Urine Microscopic? NO; Appearance Urine Clear (Clear); Bilirubin Urine Negative (Negative); Blood Urine Negative (Negative); Color Urine Light Yellow (Yellow); Glucose Urine UA Negative (Negative); Ketones Urine Negative (Negative); Leukocyte Esterase Ur Negative LEU/UL (Negative); Nitrate Urine Negative (Negative); Protein Urine Negative (Negative); Specific Grav Ur <= 1.005 (1.010-1.020); Urobilinogen Urine 0.2 mg/dL (0.2-1.0)
[2022-04-08] MEDS: MAG HYDROX/ALUMINUM HYD/SIMETH 30 ML, PHENobarb/HYOSCY/ATROPINE/SCOP 32.4 MG, LIDOCAINE... PO (22:13)
[2022-04-08] MEDS: KETOROLAC (*BKC) 60 MG/2 ML VIAL IM (22:13)
[2022-04-08] MEDS: ONDANSETRON INJ 4 MG/2 ML VIAL IV PUSH (22:14)
[2022-04-08] MEDS: PANTOPRAZOLE SODIUM IV 40 MG VIAL IV PUSH (22:15)
[2022-04-08] MEDS: ASPIRIN 325 MG ENTERIC TABLET PO (22:16)
--- NOTE | 2022-04-08 23:45 | ED.GENADULT ---
HPI - General Adult General Chief complaint: Unspecified Stated complaint: chest pain Time Seen by Provider: 04/08/22 21:08 Source: patient and RN notes reviewed Mode of arrival: ambulatory Limitations: no limitations History of Present Illness complaint: neck pain radiating down to central and left chest Onset (ago): hour(s) (2) Location: neck and chest Radiation: non-radiation Severity: mild Severity scale (1-10): 3 Quality: aching and dull Pain Consistency: constant Relieving factors: none and other (pain has lessened spontaneously) Exacerbating factors: none Associated symptoms: chest pain Treatments prior to arrival: none Related Data Home Medications Medication Instructions Recorded Confirmed buprenorphine 8 mg-naloxone 2 mg 1 film sublingual BID 09/20/19 04/08/22 sublingual film Allergies Allergy/AdvReac Type Severity Reaction Status Date / Time cephalexin Allergy Unknown Rash Verified 08/31/21 06:08 Review of Systems Review of Systems: All systems reviewed & are unremarkable except as noted in HPI and below Constitutional: Constitutional: Reports no additional constitutional complaints Eyes: Eyes: Reports no additional eye complaints ENT: Reports system reviewed and no additional complaints, except as documented and Reports neck pain Cardiovascular: Cardiovascular: Reports no additional cardiovascular complaints and Reports chest pain Respiratory: Respiratory: Reports no additional respiratory complaints Gastrointestinal: Gastrointestinal: Reports no additional gastrointestinal complaints Musculoskeletal: Musculoskeletal: Reports no additional musculoskeletal complaints Integumentary/Breasts: Skin/Breast: Reports system reviewed and no additional complaints, except as docu Neurologic: Reports system reviewed and no additional complaints, except as documented Psychiatric: Psychiatric: Reports no additional psychiatric complaints Endocrine: Endocrine: Reports no additional endocrine complaints Hematologic/Lymphatic: Hematologic/Lymphatic: Reports no additional hematologic/lymphatic complaints Allergic/Immunologic: Allergic/Immunologic: Reports no additional allergic/immunologic complaints [facility] Past Medical History Medical History Anxiety Chest pain of uncertain etiology Depression Hepatitis C Neck pain, musculoskeletal Right wrist fracture Surgical History Surgical History No history of previous surgery Social History Social History Smoking packs per day: 0.33 Smoking cigarettes per day: 6.6 Smoking status: Current every day smoker Tobacco type: cigarettes and e-cigarettes/vaping Gender identity (if verbalized by the patient): Male Exam Const: General: healthy appearing and no acute distress Nutritional Appearance: well nourished Orientation/consciousness: patient oriented x3 Limitations: no limitations HENMT: Head: normal to inspection and normocephalic Ears: external ears normal, TM's normal bilaterally and EAC's normal General nose exam: Normal external nose present and Normal nares present Face and sinus: normal facial exam and sinuses nontender Mouth: Yes Normal oral and palatal mucosa present and Yes moist mucous membranes Teeth and gingiva: dentition normal Throat: posterior oropharynx normal Eyes: Conjunctivae: conjunctivae normal Pupils: Equal, round and reactive pupils present EOM: EOMs intact bilaterally Neck: Neck: normal visual inspection, no lymphadenopathy and no meningeal signs Chest: Chest palpation & inspection: normal inspection of the chest Resp: Effort & Inspection: normal respiratory effort Auscultation: clear to auscultation bilaterally Cardio: Rate: regular rate Rhythm: regular rhythm GI: GI Palp: Yes Soft to palpation and No Tenderness to palpation present (
[2022-04-08 23:47] VITALS: BP 132/62; PULSE 70; RESP 18; O2SAT 99
[2022-04-09 00:01] VITALS: BP 136/70; PULSE 70; RESP 18; TEMP 36.1; O2SAT 99
== END 2022-04-09 00:08 | disposition home or self-care (01) ==
PROVIDERS: Emergency Provider Emergency Medicine; PCP Physician Assistant
DX: M54.2 Cervicalgia (principal); R07.9 Chest pain, unspecified
CPT/HCPCS: 36415; 71250; 72125; 80053; 81003; 83605; 84484; 85025; 93005; 96372; 96374; 96375; 99284; A9270; C9113; J1885; J2405

== ENCOUNTER 2022-05-27 13:13 | Emergency (ER) | payer OTHER, SELFPAY ==
--- NOTE | ~2022-05-27 | CT_ITS ---
EXAMINATION: CT abdomen pelvis w con DATE: 05/27/2022 18:04 INDICATION: groin pain, fever, hx of prostatitis TECHNIQUE: Computed tomography (CT) of the abdomen and pelvis was performed with 100 mL Omnipaque-350 intravenous contrast. Automated exposure control and iterative reconstruction technique were employe d. The dose-length product was 484.48 mGy-cm. COMPARISON: 04/13/2021. FINDINGS: Lower thorax: Centrilobular groundglass and nodular opacities in the right medial lower lung and to a lesser extent in the left medial lower lung. Liver: Enlarged. Biliary/Gallbladder: Gallbladder is normal. No bile duct dilation. Pancreas: No mass or duct dilation. Spleen: Normal. Adrenals:No mass. Kidneys: Left midpole simple cyst. No suspicious mass. No obstructing calcification. No hydronephrosi s. GI tract: Distal esophageal and gastric wall edema. No small or large bowel dilation. Normal appendix . Mesentery/Peritoneum: No ascites, mass, or free air. Retroperitoneum: No mass. Pelvis: Pelvic organs are within normal limits. Soft Tissues: Soft tissues and body wall unremarkable. Bones: No acute osseous finding. IMPRESSION: Pulmonary opacities in the bilateral lower lungs may reflect hypersensitivity pneumonitis, respirator y bronchiolitis, or infectious airways disease. Esophagitis/gastritis. Reviewed, dictated and finalized at location K. IMPRESSION: Pulmonary opacities in the bilateral lower lungs may reflect hypersensitivity p neumonitis, respiratory bronchiolitis, or infectious airways disease. Esophagit is/gastritis.
--- NOTE | ~2022-05-27 | XR_ITS ---
EXAMINATION: XR chest 2V DATE: 05/27/2022 13:55 INDICATION: Cough. Fever. Sore throat. TECHNIQUE: Frontal and lateral views of the chest were obtained. COMPARISON: Chest 2 views 05/25/2021, chest CT 04/08/2022 FINDINGS: There is no pneumonia, pleural effusion, or pneumothorax. The heart size is normal. Calcifi ed right hilar lymph nodes are consistent with old granulomatous disease. IMPRESSION: 1. No acute cardiopulmonary disease. Reviewed, dictated and finalized at location A.
[2022-05-27 13:41] VITALS: BP 159/100; PULSE 68; RESP 16; TEMP 36.6; O2SAT 99
[2022-05-27 15:03] LABS: Influenza A QL RT-PCR Negative (Negative); Influenza B QL RT-PCR Negative (Negative); SARS-CoV-2 RNA PCR Negative
--- NOTE | 2022-05-27 15:56 | ECG_ITS ---
Measurements Intervals [place] Rate: 52 P: 69 CT: 126 QRS: 64 QRSD: 98 T: 65 QT: 392 QTc: 366 Interpretive Statements SINUS BRADYCARDIA NORMAL ECG COMPARED TO ECG 04/08/2022 21:16:04 HEART RATE HAS DECREASED Electronically Signed On 05-28-2022 15:36:04 CDT by Hector Ahuja M.D.
--- NOTE | 2022-05-27 16:00 | ED.URI ---
HPI - URI/Sore Throat General Chief Complaint: Upper Respiratory Infection <Moira Concepcion PA-C - Last Filed: 05/27/22 19:53> Stated Complaint: sore throat <EVELYN Grove Last Filed: 05/27/22 19:53> Time Seen by Provider: 05/27/22 15:32 <EVELYN Grove Last Filed: 05/27/22 19:53> Source: patient <EVELYN Grove Last Filed: 05/27/22 19:53> Mode of arrival: ambulatory <EVELYN Grove Last Filed: 05/27/22 19:53> Limitations: no limitations <EVELYN Grove Last Filed: 05/27/22 19:53> History of Present Illness HPI Narrative: This is a 26 year old male that presents to the ER with multiple complaints. Reports he has been having sharp, intermittent left sided chest pains over the last couple of months. Reports the pain radiates into his left arm. Also reports he has had aching in his testicles. Reports fevers and myalgias. Reports history of prostatitis and that his symptoms were similar at that time. Denies shortness of breath, dysuria or hematuria. <EVELYN Grove Last Filed: 05/27/22 19:53> Related Data Home Medications: Home Medications Medication Instructions Recorded Confirmed buprenorphine 8 mg-naloxone 2 mg 1 film sublingual BID 09/20/19 04/08/22 sublingual film <EVELYN Grove Last Filed: 05/27/22 19:53> Allergies/Adverse Reactions: Allergies Allergy/AdvReac Type Severity Reaction Status Date / Time cephalexin Allergy Unknown Rash Verified 08/31/21 06:08 <VEELYN Grove Last Filed: 05/27/22 19:53> Review of Systems Review of Systems: CONSTITUTIONAL: Denies fever CARDIOVASCULAR: Reports chest pain. Denies palpitations, or edema. RESPIRATORY: Denies dyspnea. GASTROINTESTINAL: Denies abdominal pain, nausea, vomiting GENITOURINARY: Denies dysuria or hematuria. SKIN: Denies rash <Moira Concepcion PA-C - Last Filed: 05/27/22 19:53> All systems reviewed & are unremarkable except as noted in HPI and below <Moira Concepcion PA-C - Last Filed: 05/27/22 19:53> [facility] Past Medical History Medical History: Medical History Anxiety Chest pain of uncertain etiology Depression Hepatitis C Neck pain, musculoskeletal Right wrist fracture <Moira Concepcion PA-C - Last Filed: 05/27/22 19:53> Surgical History Surgical History: Surgical History No history of previous surgery <Moira Concepcion PA-C - Last Filed: 05/27/22 19:53> Social History Social History: Social History Smoking packs per day: 0.33 Smoking cigarettes per day: 6.6 Smoking status: Current every day smoker Tobacco type: cigarettes and e-cigarettes/vaping Gender identity (if verbalized by the patient): Male <Moira Concepcion PA-C - Last Filed: 05/27/22 19:53> Exam Narrative: GENERAL: Well-appearing, well-nourished, and in no acute distress. HEAD: Normocephalic, atraumatic. EYES: EOMI. ENT: Nares clear, no rhinorrhea or epistaxis. Mucous membranes moist. Oropharynx without tonsillar hypertrophy exudate or other lesions. Bilateral TMs pearly campuzano non-bulging NECK: Supple. No adenopathy or masses. CHEST: Clear to auscultation. No respiratory distress. No wheezes rales or rhonchi HEART: Regular rate and rhythm. No murmur heard. Normal peripheral pulses. ABDOMEN: Soft, nontender, nondistended, normal active bowel sounds. EXTREMITIES: Normal range of motion. No edema. SKIN: Warm, dry, no rash. NEURO: No focal deficits. Alert and oriented x3. PSYCH: Normal mood and affect <EVELYN Grove Last Filed: 05/27/22 19:53> Course FOXING CLOSER/PA Physician Supervision For this patient encounter, I reviewed the FOXING CLOSER or PA documentation, treatment plan, and medical decision making <Telly Pringle MD - Last Filed: 05/28/22 06:59> Vital Sig
[2022-05-27 16:05] VITALS: BP 142/86; PULSE 88; RESP 14; O2SAT 98
[2022-05-27 16:34] LABS: Basophils Percent Auto 0.5 % (0.2-1.2); Eosinophils Absolute Auto 0.1 K/mm3 (0-0.3); Eosinophils Percent Auto 1.4 % (0-4.4); Immature Granulocyte Absolute 0.03 K/mm3 (0.00-0.031); Immature Granulocyte Percent A 0.4 % (0-0.5); Lymphocytes Percent Auto 17.9 % (18.3-44.2); Mean Corpuscular HGB Conc 32.6 g/dl (32-36); Mean Corpuscular Hemoglobin 30.6 pg (26-34); Mean Corpuscular Volume 93.9 fl (80-100); Mean Platelet Volume 9.6 fl (7.4-10.4); Monocytes Absolute Auto 0.7 K/mm3 (0.1-0.6); Monocytes Percent Auto 9.5 % (2.6-8.5); Neutrophils Absolute Auto 5.5 K/mm3 (1.3-6.7); Neutrophils Percent Auto 70.3 % (45.5-73.1); Platelet Count Result 232 k/mm3 (150-375); White Blood Count 7.8 K/mm3 (4.5-10.0)
[2022-05-27 16:45] LABS: Alanine Aminotransferase 27 U/L (6-50); Albumin Level 4.9 g/dL (3.5-5.1); Alkaline Phosphatase 52 U/L (38-126); Anion Gap 9 mmol/L (8-16); Aspartate Amino Transferase 29 U/L (17-59); Bilirubin,Total 0.6 mg/dL (0.2-1.3); Blood Urea Nitrogen 18 mg/dL (9-20); Calcium 9.4 mg/dL (8.4-10.2); Carbon Dioxide 30 mmol/L (22-30); Chloride 101 mmol/L (98-107); Estimated CRCL calculation 107 ml/min; Estimated Glomerular Filt Rate > 60; Glucose 100 mg/dL (65-110); Potassium 4.6 mmol/L (3.4-5.0); Sodium 140 mmol/L (137-145)
[2022-05-27 16:48] LABS: INR 1.2; Prothrombin Time 14.3 Seconds (11.1-14.7)
[2022-05-27 16:50] LABS: Add Urine Microscopic? YES; Appearance Urine Cloudy (Clear); Bilirubin Urine Negative (Negative); Blood Urine Negative (Negative); Color Urine Yellow (Yellow); Glucose Urine UA Negative (Negative); Ketones Urine Negative (Negative); Leukocyte Esterase Ur Negative LEU/UL (Negative); Mucus Urine Rare /lpf; Nitrate Urine Negative (Negative); Protein Urine Negative (Negative); Specific Grav Ur 1.021 (1.001-1.035); Urobilinogen Urine Negative mg/dL (<2.0); WBC Urine 0-3 /hpf
[2022-05-27 16:56] LABS: Troponin I < 0.012 ng/mL (0.000-0.034)
[2022-05-27 17:16] LABS: D Dimer 0.33 ug/mL (<0.48)
[2022-05-27 19:45] VITALS: BP 146/92; PULSE 84; RESP 16; O2SAT 98
== END 2022-05-27 20:23 | disposition home or self-care (01) ==
PROVIDERS: Emergency Medicine; Physician Assistant; Emergency Provider Emergency Medicine; PCP Physician Assistant
DX: J18.9 Pneumonia, unspecified organism (principal); K20.90 Esophagitis, unspecified without bleeding; B19.20 Unspecified viral hepatitis C without hepatic coma; F41.9 Anxiety disorder, unspecified; F32.A Depression, unspecified; F17.210 Nicotine dependence, cigarettes, uncomplicated; F17.290 Nicotine dependence, other tobacco product, uncomplicated; Z20.822 Contact with and (suspected) exposure to COVID-19
CPT/HCPCS: 36415; 71046; 74177; 80053; 81001; 84484; 85025; 85380; 85610; 85730; 87491; 87502; 87591; 87661; 93005; 99284; C9803; Q9967; U0003; U0005

== ENCOUNTER 2022-06-13 19:21 | Emergency (ER) | payer OTHER, SELFPAY ==
--- NOTE | ~2022-06-13 | XR_ITS ---
EXAMINATION: XR chest 2V Exam Date/Time: 06/13/2022 19:42 CDT HISTORY: LEFT SIDED AND CENTER CHEST PAIN, SMOKER, FOR 2 MONTHS Comparison: 05/27/2022. RESULT: Lines, tubes, and devices: None. Lungs and pleura: Clear. Cardiomediastinal silhouette: Stable. Other: No acute osseous or upper abdominal finding. IMPRESSION: No acute cardiopulmonary process. Reviewed, dictated and finalized at location K.
--- NOTE | 2022-06-13 19:31 | ECG_ITS ---
Measurements Intervals [place] Rate: 79 P: 70 DE: 145 QRS: 68 QRSD: 97 T: 66 QT: 345 QTc: 397 Interpretive Statements SINUS RHYTHM NORMAL ECG COMPARED TO ECG 05/27/2022 16:13:13 SINUS RHYTHM NOW PRESENT Electronically Signed On 06-14-2022 12:52:49 CDT by Jorge Chance D.O.
[2022-06-13 19:55] VITALS: BP 134/71; PULSE 88; RESP 14; TEMP 36.6; O2SAT 99
[2022-06-13 20:30] LABS: Basophils Percent Auto 0.5 % (0.2-1.2); Eosinophils Absolute Auto 0.1 K/mm3 (0-0.3); Eosinophils Percent Auto 1.7 % (0-4.4); Hematocrit 44.3 % (42.0-52.0); Hemoglobin 14.3 g/dL (14.0-18.0); Immature Granulocyte Absolute 0.01 K/mm3 (0.00-0.031); Immature Granulocyte Percent A 0.2 % (0-0.5); Lymphocytes Absolute Auto 1.98 K/mm3 (0.9-3.2); Lymphocytes Percent Auto 31.3 % (18.3-44.2); Mean Corpuscular HGB Conc 32.3 g/dl (32-36); Mean Corpuscular Hemoglobin 30.1 pg (26-34); Mean Corpuscular Volume 93.3 fl (80-100); Mean Platelet Volume 9.6 fl (7.4-10.4); Monocytes Absolute Auto 0.6 K/mm3 (0.1-0.6); Monocytes Percent Auto 8.7 % (2.6-8.5); Neutrophils Absolute Auto 3.6 K/mm3 (1.3-6.7); Neutrophils Percent Auto 57.6 % (45.5-73.1); Platelet Count Result 270 k/mm3 (150-375); Red Blood Count 4.75 M/mm3 (4.6-6.20); Red Cell Distribution Width 12.1 % (11.5-14.5); White Blood Count 6.3 K/mm3 (4.5-10.0)
[2022-06-13 20:41] LABS: INR 1.1; Partial Thromboplastin Time 30.5 SECONDS (22.3-36.8)
[2022-06-13 20:46] LABS: Alanine Aminotransferase 26 U/L (6-50); Albumin Level 4.9 g/dL (3.5-5.1); Alkaline Phosphatase 41 U/L (38-126); Anion Gap 13 mmol/L (8-16); Aspartate Amino Transferase 41 U/L (17-59); Bilirubin,Total 0.7 mg/dL (0.2-1.3); Blood Urea Nitrogen 23 mg/dL (9-20); Carbon Dioxide 29 mmol/L (22-30); Chloride 97 mmol/L (98-107); Estimated CRCL calculation 116 ml/min; Estimated Glomerular Filt Rate > 60; Glucose 102 mg/dL (65-110); Lipase 56 U/L (23-300); Potassium 3.8 mmol/L (3.4-5.0); Sodium 139 mmol/L (137-145)
[2022-06-13 20:57] LABS: Troponin I < 0.012 ng/mL (0.000-0.034)
[2022-06-13 23:47] VITALS: BP 125/70; PULSE 65; RESP 12
[2022-06-13 23:48] LABS: Troponin I < 0.012 ng/mL (0.000-0.034)
[2022-06-13 23:53] VITALS: BP 125/70; PULSE 63; RESP 16; TEMP 36.8; O2SAT 100
--- NOTE | 2022-06-14 00:12 | ED.CHESTPAIN ---
HPI - Chest Pain General Chief Complaint: Chest Pain Stated Complaint: Chest pain x 2 month Time Seen by Provider: 06/13/22 23:14 History of Present Illness HPI narrative: Patient is a 26-year-old male who presents ER with central chest pain. Ongoing for 2 months. Reports its been going on all day today. Sharp. Unknown leading factors. Has not tried any oral pain medication. Originally was diagnosed with some pneumonia. No recent fevers or chills or sweats. No productive cough. No exertional chest discomfort. Has no nausea or vomiting. No bad taste in the back of his mouth. Not associate with eating drinking. Patient was also diagnosed with esophagitis previously as well. Related Data Home Medications Medication Instructions Recorded Confirmed buprenorphine 8 mg-naloxone 2 mg 1 film sublingual BID 09/20/19 04/08/22 sublingual film Allergies Allergy/AdvReac Type Severity Reaction Status Date / Time cephalexin Allergy Unknown Rash Verified 08/31/21 06:08 Review of Systems Review of Systems: All systems reviewed & are unremarkable except as noted in HPI and below Constitutional: Constitutional: Denies chills, Denies fatigue and Denies fever(s) ENT: Denies nasal congestion and Denies sore throat Cardiovascular: Cardiovascular: Reports chest pain and Denies rapid heart rate Respiratory: Respiratory: Denies cough, Denies dyspnea and Denies wheezing Gastrointestinal: Gastrointestinal: Denies abdominal pain, Denies heartburn, Denies nausea and Denies vomiting PMFSH Past Medical History Medical History Anxiety Chest pain of uncertain etiology Depression Hepatitis C Neck pain, musculoskeletal Right wrist fracture Surgical History Surgical History No history of previous surgery Social History Social History Smoking packs per day: 0.33 Smoking cigarettes per day: 6.6 Smoking status: Current every day smoker Tobacco type: cigarettes and e-cigarettes/vaping Gender identity (if verbalized by the patient): Male Exam Narrative: GENERAL: Well-appearing, well-nourished, and in no acute distress. HEAD: Normocephalic, atraumatic. EYES: PERRL and EOMI. CHEST: Clear to auscultation. No respiratory distress. No reproducible pain on palpation. HEART: Regular rate and rhythm. No murmur heard. Normal peripheral pulses. ABDOMEN: Soft, nontender, nondistended, normal active bowel sounds. EXTREMITIES: Normal range of motion. No edema. SKIN: Warm, dry, no rash. NEURO: Alert and oriented x3. PSYCH: Normal mood and affect. Course Course Emergency Course: Patient informed of results. Troponins negative. Chest x-ray unremarkable. Suspect musculoskeletal versus pleurisy. Follow-up with PCP. Will start on anti-inflammatories and PPI. Vital Signs Vital signs: Vital Signs Temperature 97.9 F 06/13/22 19:55 Pulse Rate 88 06/13/22 19:55 Respiratory Rate 14 06/13/22 19:55 Blood Pressure 134/71 06/13/22 19:55 Pulse Oximetry 99 06/13/22 19:55 Oxygen Delivery Room Air 06/13/22 19:55 Temperature 98.3 F 06/13/22 23:53 Pulse Rate 63 06/13/22 23:53 Respiratory Rate 16 06/13/22 23:53 Blood Pressure 125/70 06/13/22 23:53 Pulse Oximetry 100 06/13/22 23:53 Oxygen Delivery Room Air 06/13/22 23:53 MDM - Chest Pain Lab Data Result diagrams: 06/13/22 19:58 06/13/22 19:58 Labs: Lab Results 06/13/22 06/13/22 06/13/22 Range/Units 19:58 19:58 19:58 WBC 6.3 (4.5-10.0) K/mm3 RBC 4.75 (4.6-6.20) M/mm3 Hgb 14.3 (14.0-18.0) g/dL Hct 44.3 (42.0-52.0) % MCV 93.3 (80-100) fl MCH 30.1 (26-34) pg MCHC 32.3 (32-36) g/dl RDW 12.1 (11.5-14.5) % Plt Count 270 (150-375) k/mm3 MPV 9.6 (7.4-10.4) fl Immature Gran % (Auto) 0.2
[2022-06-14 00:22] VITALS: BP 122/61; PULSE 71; RESP 16; TEMP 36.8; O2SAT 100
== END 2022-06-14 00:24 | disposition home or self-care (01) ==
PROVIDERS: Emergency Medicine; Emergency Provider Emergency Medicine; PCP Physician Assistant
DX: R07.89 Other chest pain (principal); F41.9 Anxiety disorder, unspecified; F32.A Depression, unspecified; F17.290 Nicotine dependence, other tobacco product, uncomplicated; F17.210 Nicotine dependence, cigarettes, uncomplicated; Z86.19 Personal history of other infectious and parasitic diseases
CPT/HCPCS: 36415; 71046; 80053; 83690; 84484; 85025; 85610; 85730; 93005; 99284

== ENCOUNTER 2024-10-24 23:57 | Emergency (ER) | payer OTHER, SELFPAY ==
--- NOTE | ~2024-10-24 | XR_ITS ---
Clinical Indication: Shortness of breath PA and lateral views of the chest: Comparison: 06/13/2022 Findings: The lungs are clear, without evidence of focal consolidation or pleural effusion. Cardiome diastinal silhouette is within normal limits. Bones and soft tissues are unremarkable. Impression: Normal chest. Reviewed, dictated and finalized at location . Impression: Normal chest.
--- OUTSIDE RECORDS SUMMARY | 2024-10-25 | XMS_ITS | Clinical Summary ---
Author Organization [facility] Address [address] [place] [id number] Care Team Providers Care Hotel Service Supervisor Name Role Phone Terry Rios MD Unavailable [phone] Nancy Sanders NP Primary Care Provider [phone] Allergies Active Allergy Reactions Criticality Noted Date Comments Cephalexin Unknown 03/11/2019 Medications buprenorphine-n aloxone 8-2 MG FILM Take 1 Film by mouth daily. 06/25/2021 Active Testosterone Cypionate (TESTONE CIK) 200 MG/ML Kit Inject 160 mg into the muscle once a week. Active nicotine (NICODERM CQ) 21 MG/24HR APPLY 1 PATCH EVERY DAY AND REMOVE AT BEDTIME 01/11/2023 Active Active Problems No known active problems Immunizations Name Administration Dates Next Due Dtap 08/11/1997 Dtp 08/02/1994,02/03/1994,1993 ,1993 MMR 08/11/1997,08/02/1994 Opv 08/11/1997,08/04/1996,06/05/1996 ,04/02/1996 Family History Medical History Relation Comments Drug Abuse Father Diabetes Maternal Grandfather Hypertension Maternal Grandfather Hyperlipidemia Paternal Grandfather Relation Status Comments Brother Alive Father (Age 34) Maternal Grandfather Maternal Grandmother Alive Mother Alive Paternal Grandfather Paternal Grandmother Alive Sister Alive Social History Tobacco Use Types Packs/Day Years Used Date Smoking Tobacco: Light Smoker Cigarettes Smokeless Tobacco: Never Comments:1 a day Alcohol Use Standard Drinks/Week Comments Not Currently 0 (1 standard drink = 0.6 oz pur e alcohol) Sex and Gender Information Value Date Recorded Sex Assigned at Not on file 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 Gender Identity Not on file Sexual Orientation Not on file Last Filed Vital Signs Vital Sign Reading Time Taken Comments Blood Pressure 138/70 01/26/2023 11:25 AM CDT Pulse 91 01/26/2023 11:16 AM CDT Temperature - - Respiratory Rate - - Oxygen Saturation 99% 01/26/2023 11:16 AM CDT Inhaled Oxygen Concentration - - Weight 96.2 kg (212 lb) 01/26/2023 11:16 AM CDT Height 190.5 cm (6' 3 ) 01/26/2023 11:16 AM CDT Body Mass Index 26.5 01/26/2023 11:16 AM CDT Plan of Treatment Health Maintenance Due Date Last Done Comments Annual Physical 1996 Pneumococcal Vaccine: Pediatrics (0 to 5 Years) and At-Risk Patients (6 to 64 Years) (1 of 2 - PCV) 1999 DTaP, Tdap and Td Vaccines (2 - Tdap) 2012 08/11/1997, 08/02/1994, 02/03/1994, Additional history exists Hepatitis B Vaccines (1 of 3 - 19+ 3-dose series) 2012 COVID-19 Vaccine (2023- season) 2024 Influenza Adult (#1) 2024 Hepatitis C Completed 01/26/2023, 11/0 11/2021, 10/21/2021, Additional history exists HPV Vaccines Aged Out No longer eligi ble based on patient's age to complete this topic Meningococcal B Vaccine Aged Out No l onger eligible based on patient's age to complete this topic Meningococcal Vaccine Aged Out No oh merari eligible based on patient's age to complete this topic RSV Immunizations Under 20 Months Aged Out No longer eligible based on patient's age to complete this topic Insurance UMR Care Teams Hotel Service Supervisor Relationship Specialty Start Date End Date Nancy Sanders NP [address] [facility] [address] [place] [id number] PCP - General Nurse Practitioner Family 06/17/21 Terry Rios MD [facility] [address] [place] [address] [employer] Medical Billing Instructor INTERVENTIONAL CARDIOLOGY 03/12/19
--- OUTSIDE RECORDS SUMMARY | 2024-10-25 | XMS_ITS | Encounter Summary ---
Author Organization [facility] Address [facility] [place] [address] Care Team Providers Care Organic Search Lead Name Role Phone Terry Rios MD Unavailable [phone] Nancy Sanders NP Primary Care Provider [phone] Encounter Details Date Type Department Care Team (Late st Contact Info) Description 09/19/2021 [facility] [address] Yariel Cotton MA Social History Tobacco Use Types Packs/Day Years Used Date Smoking Tobacco: Heavy Smoker Cigarettes Smokeless Tobacco: Never Alcohol Use Standard Drinks/Week Comments Not Currently 0 (1 standard drink = 0.6 oz pur e alcohol) Sex and Gender Information Value Date Recorded Sex Assigned at Not on file 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 Gender Identity Not on file Sexual Orientation Not on file documented as of this encounter Plan of Treatment Not on file documented as of this encounter Procedures Procedure Name Priority Date/Time Associated Diagnosis Comments CBC (OUTSIDE LAB) Routine 08/26/2021 COMPREHENSIVE METABOLIC PANEL Routine 08/26/2021 LIPID PANEL Routine 08/26/2021 documented in this encounter Results * CBC (OUTSIDE LAB) (08/26/2021) WBC 4.9 HGB 15.2 HCT 44.9 PLT 242 08/26/2021 [facility] Abstract LAB-OUTSIDE/ABSTRACTED Final Result * (ABNORMAL) COMPREHENSIVE METABOLIC PANEL (08/26/2021) SODIUM S/P/B 140 POTASSIUM S/P/B 4.7 CO2 25 CHLORIDE S/P/B 102 GLUCOSE 98 mg/dL CALCIUM S/P/B 9.3 BUN 17 CREATININE S/P/B 0.84 0.7 - 1.3 EGFR AFR. AMER. 138(A) <=90 EGFR NON-AFR. AMER. 119(A) <=90 ALKALINE PHOSPHATASE S/P/B 55 ALT 26 AST 32 BILIRUBIN TOTAL S/P/B 0.5 ALBUMIN S/P/B 4.3 3.5 - 5.0 TOTAL PROTEIN S/P/B 6.8 08/26/2021 [facility] Abstract LABORATORY Final Result * LIPID PANEL (08/26/2021) CHOLESTEROL 143 HDL 49 TRIGLYCERIDES 34 LDL (CALCULATED) 86 08/26/2021 [facility] Abstract LABORATORY Final Result documented in this encounter Visit Diagnoses Not on filedocumented in this encounter Care Teams Organic Search Lead Relationship Specialty Start Date End Date Nancy Sanders NP [address] [facility] [address] [place] [address] PCP - General Nurse Practitioner Family 06/17/21 Terry Rios MD [facility] [address] [place] [address] Pollard Cloth Tester Quality INTERVENTIONAL CARDIOLOGY 03/12/19 documented as of this encounter
--- OUTSIDE RECORDS SUMMARY | 2024-10-25 | XMS_ITS | Clinical Summary ---
Author Organization [facility] Address [address] [place] [address] Phone Care Team Providers Care Dental Assistant Instructor Name Role Phone Juju Zuniga [facility] Primary Care Provider + Allergies Active Allergy Reactions Criticality Noted Date Comments Cephalexin Unknown 03/11/2019 Medications Buprenorphine HCl-Naloxone HCl (SUBOXONE) 12-3 MG FILM by Sublingual route 2 times daily. Take one half twice daily Active Family History Medical History Relation Name Comments Diabetes Maternal Grandfather Relation Name Status Comments Maternal Grandfather Social History Tobacco Use Types Packs/Day Years Used Date Smoking Tobacco: Every Day Cigarettes 0.5 12 Smokeless Tobacco: Never Tobacco Cessation:Ready to Q uit: No; Counseling Given: Yes Alcohol Use Standard Drinks/Week Comments Not Currently 0 (1 standard drink = 0.6 oz pur e alcohol) Sex and Gender Information Value Date Recorded Sex Assigned at Not on file Legal Sex Male 11:50 AM CDT Gender Identity Not on file Sexual Orientation Not on file Occupation Industry Job Start Date Job End Date [employer] Not on file Not on file Not on file Last Filed Vital Signs Vital Sign Reading Time Taken Comments Blood Pressure 110/76 03/11/2019 1:33 PM CDT Pulse 58 03/11/2019 1:33 PM CDT Temperature 35.8 C (96.5 F) 03/11/2019 1:33 PM CDT Respiratory Rate 16 03/11/2019 1:33 PM CDT Oxygen Saturation 98% 03/11/2019 1:33 PM CDT Inhaled Oxygen Concentration - - Weight 115.2 kg (254 lb) 03/11/2019 1:33 PM CDT Height 190.5 cm (6' 3 ) 03/11/2019 1:33 PM CDT Body Mass Index 31.75 03/11/2019 1:33 PM CDT Plan of Treatment Health Maintenance Due Date Last Done Comments Influenza Immunization (#1) 2024 05/02/2017 SARS-COV-2 Immunization (2023- season) 2024 Respiratory Syncytial Virus (RSV) Immunization (Adult) (1 - 1-dose 75+ series) 2068 DTaP/Tdap/Td Immunization Discontinued 2007, 08/11/1997, 08/02/1994, Additional history exists TdaP Immunization Completed 02/04/2008 Hepatitis B Immunization Completed 017, 04/04/1994, 02/03/1994, Additional history exists Meningococcal Immunization (ACWY) Aged Out No longer eligible based on patient's age to complete this topic Pneumococcal Immunization Combined Aged Out No longer eligible based on patient's age to complete this topic Rotavirus Immunization Aged Out No lo nger eligible based on patient's age to complete this topic Insurance MEDICAID [employer] Care Teams Dental Assistant Instructor Relationship Specialty Start Date End Date Juju Zuniga PAC [address] [place], [place] [id number] PCP - General Advanced Practice Nurse 01/13/19
--- OUTSIDE RECORDS SUMMARY | 2024-10-25 | XMS_ITS | Continuity of Care Document ---
Author Organization [facility] Address [address] [place] [address] [place] [address] Phone Care Team Providers Care Services Mgr Name Role Phone Aguilar Cee MD Unavailable Unavailable Allergies, Adverse Reactions, Alerts Substance Reaction Status Criticality CEPHALEXIN MONOHYDRATE Active No In formation Medications Medication Instructions Dosage Effective Dates (start - stop) Status Comments Vistaril 50 mg capsule take 1 capsule by oral route every 6 hours as needed 50 MG - Active PRN for anxiety, avoid driving or operate [address] trazodone 100 mg tablet take 1 tablet by oral route every bedtime after meals 100 MG - Active Zoloft 50 mg tablet take 1 tablet by oral route every day 50 MG - Active Procedures Procedure Date PREV VISIT, NEW, AGE 18-39 Advance Directives Directive Yes / No Effective Date File Name No Information Encounters Encounter Description Practice Location Reason(s) For Visit Diagnoses Date Provider Providers Copied on Encounter PREV VISIT, NEW, AGE 18-39 [facility], [address], [id number], tel:[phone] [facility] PHysical (chief complaint) Encntr for general adult medical exam w/o abnormal findings Coleman Sheikh. [address] [place], [id number], [place]. tel:[phone] Referring Provider: Aguilar Cee, [address] [place], [place], [id number]. tel:[phone] Family History Family Member Type Diagnosis Age At Onset Father Problem (finding) Alive and well Mother Problem (finding) Alive and well Brother Problem (finding) Alive and well Payers Payer name Insurance type Covered alliance party ID Marcel rico(s) No Information Social History Type Description Quantity Date Captured Comments Alcohol Use Details No Caffeine Use Details Unknown Tobacco Use Status Occasional cigarette smoker Smoking Status Current some day smoker Smoking Tobacco Use Details Cigarette: No Details Available Cigarette: No Details Available Sex Male Vital Signs Date / Time: Height Weight BMI Pulse Rate Blood Pressure Temperature Respiratory Rate Body Surface Area Head Circumference BMI percentile Pulse Ox Inhaled Ox 1:03 PM 75.00 in 231.00 lbs 28.8 7 kg/m eter (2) 72 /min 127/86 mm[Hg] 98.3 F 18 /min Chief Complaint And Reason For Visit From encounter dated '05/01/2016 11:00'. PHysical (chief complaint). Description: Pt needs annual physical. 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 Pt is clean for several months now. Pt has chornic anxiety and depression and insomnia. Pt takes zoloft, vistaril and trazodone and doing ok. Pt needs reifll. Pt also has hep C. Pt denies any abd pain. Pt needs treated. Pt denies any other complaints Plan Of Treatment Date Type Action Status No Information History Of Present Illness Encounter Date Complaint History Of Prese nt Illness PHysical Pt needs annual physical. 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 Pt is clean for several months now. Pt has chornic anxiety and depression and insomnia. Pt takes zoloft, vistaril and trazodone and doing ok. Pt needs reifll. Pt also has hep C. Pt denies any abd pain. Pt needs treated. Pt denies any other complaints Instructions Date Instruction Additional Infor mation No Information Assessments Type Assessment Date assessment Encntr for general adult medical exam w/o abnormal findings Mental Status Date Cognitive Assessment Orientation - [place] ed to time, place, person, situation.
--- OUTSIDE RECORDS SUMMARY | 2024-10-25 | XMS_ITS | Continuity of Care Document ---
Author Organization [facility] Address [address] [place] [address] Phone Care Team Providers Care Business Developer Name Role Phone Mary Solo DDS Unavailable Unavailable Allergies, Adverse Reactions, Alerts Substance Reaction Status Criticality CEPHALEXIN MONOHYDRATE Rash Active No In formation Medications Medication Instructions Dosage Effective Dates (start - stop) Status Comments ibuprofen 800 mg tablet take 1 tablet by oral route 3 times every day with food 800 MG - Active melatonin 10 mg capsule 1 tablet at bedtime - Active amoxicillin 500 mg capsule take 1 capsule by oral route every 8 hours 500 MG - No Longer Active Procedures Procedure Date Extraction, Erupted Tooth Or Exposed Betty t (Elevati Local Anesthesia Limited Evaluation Intraoral Periapical First Film 016 OFFICE/OUTPATIENT VISIT, NEW Advance Directives Directive Yes / No Effective Date File Name No Information Encounters Encounter Description Practice Location Reason(s) For Visit Diagnoses Date Provider Providers Copied on Encounter [facility], [address] [place] [address] [place], [id number], tel:[phone] [facility] Encounter for dental exam and cleaning w/o abnormal findings 6 Edil Hernandez. [address] [facility] 212, [id number] [address] [place] [address], [id number] . tel: [phone] [facility], [address] [place] [address] [place], [id number], tel:[phone] [facility] Encounter for dental exam and cleaning w/o abnormal findings 6 Edil Hernandez. [address] [facility] [address], [id number] [address] [place] [address], [id number] . tel: [phone] OFFICE/OUTPAT IENT VISIT, [facility], [address], [place], [place], [id number], tel:[phone] [facility] dental (chief complaint) provider comments (chief complaint) Dental caries 201 6 Ricky Sylvester. [address] [place] [address] [address], [id number] [address] [place] [address], [id number] , [place]. tel: [phone] Family History Family Member Type Diagnosis Age At Onset Mother Problem (finding) Arthritis Paternal grandfather Problem (finding) unknown Father Problem (finding) overdosed age 34 (Cause Of ) Maternal grandfather Problem (finding) malignant neopl asm of lung Sister Problem (finding) Paternal grandfather Problem (finding) Brother Problem (finding) Maternal grandfather Problem (finding) unknown Father Problem (finding) drug abuse (Cause Of De ath) Father Problem (finding) Anxiety Payers Payer name Insurance type Covered republican ID Authoriza timarian(s) [facility] [id number] Social History Type Description Quantity Date Captured Comments Sex Male Smoking Status No Information Chief Complaint And Reason For Visit No Information Reason For Referral Reason For Referral No Information History Of Present Illness Encounter Date Complaint History Of Prese nt Illness provider comments The symptoms b linh 6 months ago. Pain in variety of areas for 6 months, thinks 4 spots. Leaving the program at [facility] in about a week. dental pt present today teeth hurting. thinks one on the bottom left that is chipped and multiple cavities. Functional Status Date Functional Assessmen t No Information Instructions Date Instruction Additional Infor mation No Information Assessments Type Assessment Date No Information Patient Care Teams Name Effective Dates (start - stop) Status Members No Information
[2024-10-25 00:05] VITALS: BP 137/85; PULSE 78; RESP 18; TEMP 36.1; O2SAT 100
--- NOTE | 2024-10-25 00:15 | ECG_ITS ---
Test Date: 2024-10-25 00:23:35 Measurements Intervals [place] Rate: 60 P: 57 KS: 161 QRS: 70 QRSD: 96 T: 41 QT: 392 QTc: 393 Interpretive Statements SINUS RHYTHM WITH SINUS ARRHYTHMIA No previous ECG available for comparison Electronically Signed On 10-27-2024 15:04:20 CDT by Pato Guan M.D.
--- NOTE | 2024-10-25 00:17 | ED.SOB ---
HPI - SOB/Dyspnea General Chief Complaint: Shortness of Breath/Dyspnea Stated Complaint: URI Time Seen by Provider: 10/25/24 00:07 Source: patient Mode of arrival: ambulatory Limitations: no limitations History of Present Illness HPI Narrative: This is a 29-year-old male with history of depression and anxiety who presents emergency department complaining of shortness of breath for the past few weeks. The patient denies any known pattern/obvious trigger to the episodes though states they have been happening more frequently. The last between 30 minutes and an entire day. He denies recent change in medications, recent travel or known sick contacts. He has had intermittent episodes of jaw pain though denies cough, nausea, vomiting, lower extremity swelling or loss of consciousness. Related Data Home Medications ?Medication ?Instructions ?Recorded ?Confirmed ?Last Taken ?Type buprenorphine 8 mg-naloxone 2 mg 1 film sublingual BID 09/20/19 10/25/24 Unknown History sublingual film Allergies Allergy/AdvReac Type Severity Reaction Status Date / Time cephalexin Allergy Unknown Rash Verified 10/25/24 00:14 Review of Systems Review of Systems: All systems reviewed & are unremarkable except as noted in HPI and below PMFSH Past Medical History Medical History Chest pain of uncertain etiology Neck pain, musculoskeletal Hepatitis C Anxiety Depression Right wrist fracture Surgical History Surgical History No history of previous surgery Social History Social History Smoking packs per day: 0.33 Smoking cigarettes per day: 6.6 Smoking status: Current every day smoker Tobacco type: cigarettes and e-cigarettes/vaping Gender identity (if verbalized by the patient): Male Exam Narrative: GENERAL: Well-developed, well-nourished, and in no acute distress. HEAD: Normocephalic, atraumatic. EYES: PERRLA and EOMI. ENT: Nares clear, no rhinorrhea or epistaxis. Mucous membranes moist. Oropharynx without tonsillar hypertrophy exudate or other lesions. NECK: Supple. No JVD CHEST: Clear to auscultation. No respiratory distress. No wheezes rales or rhonchi HEART: Regular rate and rhythm. No murmur heard. Normal peripheral pulses. ABDOMEN: Soft, nontender, nondistended, normal active bowel sounds. EXTREMITIES: Normal range of motion. No edema. SKIN: Warm, dry, no rash. NEURO: Alert and oriented x3. No focal deficit. Moving all 4 limbs spontaneously PSYCH: Normal mood and affect. Course Course Emergency Course: 01:48 - Chest x-ray by my review not concerning for mass, pneumothorax, pneumonia or other acute cardiopulmonary process. CBC unremarkable. Chemistries demonstrate elevated creatinine of 1.31 with a baseline of 1 but is otherwise unremarkable. Troponin negative. BNP negative. EKG not concerning for ischemia. The patient tested negative for influenza, RSV and COVID. The cause of the patient's dyspnea is unclear and may reflect anxiety. will discharge with recommendation for primary care follow-up. I discussed the findings and recommendations with The patient. Discussed return and emergency precautions including signs/symptoms of ACS and respiratory distress. The patient voiced understanding and agreement with the plan. All questions answered to his satisfaction. Vital Signs Vital signs: Vital Signs Temperature 97 F L 10/25/24 00:05 Pulse Rate 78 10/25/24 00:05 Respiratory Rate 18 10/25/24 00:05 Blood Pressure 137/85 10/25/24 00:05 Pulse Oximetry 100 10/25/24 00:05 Oxygen Delivery Room Air 10/25/24 00:05 Temperature 97 F L 10/25/24 00:05 Pulse Rate 53 L 10/25/24 01:00 Respiratory Rate 18 10/25/24 01:00 Blood Pressure 117/56 L 10/25/24 01:00 Pulse Oximetry 96 10/25/24 01:00 Oxygen Delivery Room Air 10/25/24 01:00 MDM - SOB/Dyspnea MDM Narrative Medical decision making narrative: Plan: Labs, imaging, EKG, reassess Differential Diagnosis Differential diagnosis: Likely congestive heart failure, community acquired pneumonia, asthma with exacerbation and other ( pneumothorax, renal failure, metabolic abnormality, anxiety, COVID, influenza, RSV, other) Lab Data 10/25/24 00:33 10/25/24 00:33 Labs: Lab Results 10/25/24 10/25/24 Range/Units 00:01 00:33 WBC 4.4 L (4.8-10.8) K/mm3 RBC 4.90 (4.70-6.10) M/mm3 Hgb 14.2 (14.0-18.0) g/dL Hct 44.9 (40.0-54.0) % MCV 91.6 (78.0-102.0) fL MCH 29.0 (27.0-31.0) pg MCHC 31.6 L (32-36) g/dL RDW 11.9 (11.6-14.4) % Plt Count 220 (150-420) K/mm3 MPV 9.5 (8.7-11.0) fl Immature Gran % (Auto) 0.2 H (0.0-0.0) % Neut % (Auto) 46.6 L (50.0-70.0) % Lymph % (Auto) 38.6 (18.0-42.0) % [place] % (Auto) 9.8 (2.0-11.0) % Eos % (Auto) 4.1 (1.0-6.0) % Baso % (Auto) 0.7 (0.0-1.0) % Lymph # (Auto) 1.69 (1.10-4.50) K/mm3 [place] # (Auto) 0.43 (0.10-0.90) K/mm3 Eos # (Auto) 0.18 (0.02-0.50) K/mm3 Baso # (Auto) 0.03 (0.00-0.10) K/mm3 Abs Immat Gran (auto) 0.01 H (0.00-0.00) K/mm3 Absolute Neuts (auto) 2.04 (1.70-7.20) K/mm3 Absolute Nucleated RBC 0.00 (0.00-0.00) K/mm3 Nucleated RBC % 0.0 (0-0.0) % Sodium 142 (136-145) mmol/L Potassium 3.8 (3.5-5.1) mmol/L Chloride 104 (98-108) mmol/L Carbon Dioxide 33 H (21-32) mmol/L Anion Gap 5 (4-12) mmol/L BUN 26 H (7-18) mg/dL Creatinine 1.31 H (0.70-1.30) mg/dL Estim Creat Clear Calc 85 ml/min Estimated GFR > 60 (59 - ) Glucose 108 H (70-99) mg/dL Calculated Osmolality 299 H (285-295) mOsm/kg Calcium 8.8 (8.5-10.1) mg/dL Total Bilirubin 0.6 (0.00-1.00) mg/dL AST 18 (15-37) U/L ALT 42 (16-63) U/L Alkaline Phosphatase 62 (46-116) U/L Troponin I < 4.0 (0.00-60.4) ng/L NT-Pro-B Natriuret Pep 22 (0-125) pg/mL Total Protein 7.5 (6.4-8.2) g/dL Albumin 4.3 (3.4-5.0) g/dL Influenza A (RT-PCR) Negative (Negative) Influenza B (RT-PCR) Negative (Negative) RSV (RT-PCR) Negative (Negative) SARS-CoV-2 RNA (RT-PCR) Negative (Negative) ECG Data EKG #1: Attestation: I personally reviewed and interpreted this ECG as follows: ECG completion date: 10/25/24 ECG completion time: 00:23 Prior ECG tracings: not available for review Interpretation: Sinus rhythm, rate 60, normal axis, no ST segment elevations or T-wave inversions concerning for ischemia intervals with QTC 393. A Cardiology interpretation of EKG done in May 2022 is unchanged. I am unable to view the EKG for direct comparison due to technical difficulties. Discharge Plan Discharge Clinical Impression: Elevated serum creatinine Dyspnea Qualifiers: Dyspnea type: unspecified Qualified Code(s): R06.00 - Dyspnea, unspecified Patient Disposition: Home, Self-Care Condition: Stable Instructions: Antibiotic Form, Dyspnea (ED) Additional Instructions: You were seen in the emergency department. your EKG and labs are not concerning for injury to the heart. Your red blood cell and white blood cell counts are within normal limits. Your liver and kidney function test demonstrates changes consistent with some dehydration but is otherwise unremarkable. A chest x-ray was not concerning for pneumonia, collapsed lung or mass. You tested negative for COVID, influenza and RSV. I recommend following up with your primary care doctor. If you develop chest pain, no worsening shortness of breath, loss of consciousness, bleeding, or if you have other emergent concerns for life, limb, or eyesight, return to the emergency department. Patient Language: French Prescriptions: No Action buprenorphine-naloxone 8-2 mg film 1 film sublingual BID Follow-up/Referrals: Efrain,EVELYN Matute [Primary Care Provider] - 1 Week Time of Disposition: 02:01
--- OUTSIDE RECORDS SUMMARY | 2024-10-25 00:20 | XMS_ITS | Continuity of Care Document ---
Author Organization [facility] Address [address] [place] [address] [place] [address] Phone Care Team Providers Care Coder Name Role Phone Aguilar Cee MD Unavailable Unavailable Allergies, Adverse Reactions, Alerts Substance Reaction Status Criticality CEPHALEXIN MONOHYDRATE Active No In formation Medications Medication Instructions Dosage Effective Dates (start - stop) Status Comments Zoloft 50 mg tablet take 1 tablet by oral route every day 50 MG - Active trazodone 100 mg tablet take 1 tablet by oral route every bedtime after meals 100 MG - Active Vistaril 50 mg capsule take 1 capsule by oral route every 6 hours as needed 50 MG - Active PRN for anxiety, avoid driving or operate [employer] Procedures Procedure Date PREV VISIT, NEW, AGE 18-39 Advance Directives Directive Yes / No Effective Date File Name No Information Encounters Encounter Description Practice Location Reason(s) For Visit Diagnoses Date Provider Providers Copied on Encounter PREV VISIT, NEW, AGE 18-39 [facility], [address] [place], [id number], tel:[phone] [facility] PHysical (chief complaint) Encntr for general adult medical exam w/o abnormal findings Coleman Sheikh. [address] [place], [id number], [place]. tel:[phone] Referring Provider: Aguilar Cee, [address], [place], [id number]. tel:[phone] Family History Family Member Type Diagnosis Age At Onset Father Problem (finding) Alive and well Mother Problem (finding) Alive and well Brother Problem (finding) Alive and well Payers Payer name Insurance type Covered constitution party ID Marcel rico(s) No Information Social [...] Mental Status Date Cognitive Assessment Orientation - [place] ed to time, place, person, situation.
--- OUTSIDE RECORDS SUMMARY | 2024-10-25 00:20 | XMS_ITS | Continuity of Care Document ---
Author Organization [facility] Address [address] [place] [address] Phone Care Team Providers Care Monument Installer Name Role Phone Mary Solo DDS Unavailable [...] Diagnoses Date Provider Providers Copied on Encounter [facility], [address] [place] [address] [place], [id number], tel:[phone] [facility] Encounter for dental exam and cleaning w/o abnormal findings 6 Edil Hernandez. [address] [facility] 212, [id number] [address] [place] [address], [id number] . tel: [phone] [facility], [address] [place] [address] [place], [id number], tel:[phone] [facility] Encounter for dental exam and cleaning w/o abnormal findings 6 Edil Hernandez. [address] [facility] [address], [id number] [address] [place] [address], [id number] . tel: [phone] OFFICE/OUTPAT IENT VISIT, [facility], [address], [place], [place], [id number], tel:[phone] [facility] dental (chief complaint) provider comments (chief complaint) Dental caries 201 6 Ricky Sylvester. [address] [place] [address] [address], [id number] [address] [place] [address], [id number] , [place]. tel: [phone] Family History Family Member Type Diagnosis Age [...] Anxiety Payers Payer name Insurance type Covered libertarian ID Authoriza timarian(s) [facility] [id number] Social History Type Description Quantity Date Captured [...] thinks 4 spots. Leaving the program at [facility] in about a week. dental pt present [...]
--- NOTE | 2024-10-25 00:29 | PC.NURSE ---
patient returned from imaging via wheelchair per radioisotope technologist. rehabilitation attendant at bedside for blood draw. patient remains speaking complete sentences without distress. RN monitoring.
[2024-10-25 00:36] LABS: Basophils Absolute Auto 0.03 K/mm3 (0.00-0.10); Basophils Percent Auto 0.7 % (0.0-1.0); Eosinophils Absolute Auto 0.18 K/mm3 (0.02-0.50); Eosinophils Percent Auto 4.1 % (1.0-6.0); Hematocrit 44.9 % (40.0-54.0); Hemoglobin 14.2 g/dL (14.0-18.0); Immature Granulocyte Absolute 0.01 K/mm3 (0.00-0.00); Immature Granulocyte Percent A 0.2 % (0.0-0.0); Lymphocytes Absolute Auto 1.69 K/mm3 (1.10-4.50); Lymphocytes Percent Auto 38.6 % (18.0-42.0); Mean Corpuscular HGB Conc 31.6 g/dL (32-36); Mean Corpuscular Volume 91.6 fL (78.0-102.0); Mean Platelet Volume 9.5 fl (8.7-11.0); Monocytes Absolute Auto 0.43 K/mm3 (0.10-0.90); Monocytes Percent Auto 9.8 % (2.0-11.0); Neutrophils Absolute Auto 2.04 K/mm3 (1.70-7.20); Neutrophils Percent Auto 46.6 % (50.0-70.0); Platelet Count Result 220 K/mm3 (150-420); Red Cell Distribution Width 11.9 % (11.6-14.4); White Blood Count 4.4 K/mm3 (4.8-10.8)
[2024-10-25 00:51] LABS: Alanine Aminotransferase 42 U/L (16-63); Albumin Level 4.3 g/dL (3.4-5.0); Alkaline Phosphatase 62 U/L (46-116); Anion Gap 5 mmol/L (4-12); Aspartate Amino Transferase 18 U/L (15-37); Bilirubin,Total 0.6 mg/dL (0.00-1.00); Blood Urea Nitrogen 26 mg/dL (7-18); Calcium 8.8 mg/dL (8.5-10.1); Carbon Dioxide 33 mmol/L (21-32); Chloride 104 mmol/L (98-108); Estimated CRCL calculation 85 ml/min; Estimated Glomerular Filt Rate > 60; Glucose 108 mg/dL (70-99); Osmolality Calculated 299 mOsm/kg (285-295); Potassium 3.8 mmol/L (3.5-5.1); Sodium 142 mmol/L (136-145); Total Protein 7.5 g/dL (6.4-8.2)
[2024-10-25 00:56] LABS: Influenza A QL RT-PCR Negative (Negative); Influenza B QL RT-PCR Negative (Negative); RSV RNA, RT-PCR Negative (Negative); SARS-CoV-2 RNA PCR Negative (Negative)
[2024-10-25 01:00] VITALS: BP 117/56; PULSE 53; RESP 18; O2SAT 96
--- NOTE | 2024-10-25 01:15 | PC.NURSE ---
patient asleep on stretcher in ED 1, snoring audibly.
[2024-10-25 01:20] LABS: NT Pro B Type Natriuretic Pept 22 pg/mL (0-125); Troponin I < 4.0 ng/L (0.00-60.4)
[2024-10-25 02:19] VITALS: BP 128/70; PULSE 50; RESP 18; TEMP 36.2; O2SAT 99
== END 2024-10-25 02:20 | disposition home or self-care (01) ==
PROVIDERS: Emergency Provider Preventive Medicine Aerospace Medicine; PCP Physician Assistant
DX: R79.89 Other specified abnormal findings of blood chemistry (principal); R06.00 Dyspnea, unspecified; F17.210 Nicotine dependence, cigarettes, uncomplicated; Z79.899 Other long term (current) drug therapy; Z20.822 Contact with and (suspected) exposure to COVID-19
CPT/HCPCS: 36415; 71046; 80053; 83880; 84484; 85025; 87637; 93005; 99284